=== PATIENT | male | born 1945 | race Caucasian/White ===

== ENCOUNTER 2025-03-25 16:32 | Inpatient (IN) | payer MEDICARE, SELFPAY ==
--- OUTSIDE RECORDS SUMMARY | 2024-02-21 04:30 | XMS_ITS ---
Author Organization [facility] Address [address] [address] Care Team Providers Care Can Marker Name Role Phone JANNA LAWLER Unavailable [phone] Elvin LUZ, Tristen Unavailable Unavailable MANUELA MEZA Unavailable [phone] REASON FOR VISIT Medicare Wellness Exam and lab review Encounters Encounter Location Date Provider Diagnosis [facility] [address] [address] 02/21/2024 MANUELA MEZA Plan Of Treatment No Information Progress Notes * ZIYAD SHAHDOB:[birth year] (79 yo M)Acc No.[id number]:02/21/2024 Progress Note Patient: ZIYAD HDEZ Cecelia Provider: Eliz MEZA PA-C :1945 A ge:78 Y S ex:Male Date:02/21/2024 Address:[address] [place], [id number] Subjective: * Chief Complaints: * 1 . Medicare Wellness Exam and lab review. * Medical History: Objective: * Vitals: Assessment: Plan: * Treatment: * Billing Information: * Visit Code: * Procedure Codes: * Electronic signature of JOSE ANTONIO HERMAN PA-C on 03/25/2025 at 06:49 PM EST Sign off status: Pending * Provider: Eliz MEZA PA-C Date: 1 Generated for Sonam be/Mundo/Franchescaitting on: 05/25/2024 06:49 PM EST
--- OUTSIDE RECORDS SUMMARY | 2024-09-02 03:11 | XMS_ITS | Continuity of Care Document ---
Author Organization [facility] Address [address] [facility] [place] [address] Phone Care Team Providers Care Dot Etcher Name Role Phone Mati Hood III, MD Unavailable Unavailable Advance Directives Directive Yes / No Effective Date File Name No Information Encounters Encounter Description Practice Location Reason(s) For Visit Diagnoses Date Provider Providers Copied on Encounter [facility], [address] [facility], [place], [place], [id number] , [place] tel: [phone] [place] [address] No Information Apr-2 - 5 Erwin Thorne. [address], [place], [address], [place]. tel:[phone] [facility], [address] [facility], [place], [place], [id number] , [place] tel: [phone] [place] [phone] Varner NEFL Cataract extraction status, right eye Mar-2 0- 5 Conversion Integration . This Is For Integration s, To Convert Old Doctors, Without Adding More Bad Data. [facility], [address] [facility], [place], [place], [id number] , [place] tel: [phone] [place] [address] Cataract extraction status, right eye Mar-1 2- 5 Rolando Garcia. [address] [place], [address], [place]. tel:[phone] [facility], [address] [facility], [place], [place], [id number] , [place] tel: [phone] [place] [phone] [facility] NEFL Dry eye syndrome of bilateral lacrimal glandsKeratocon junctivitis sicca, not specified as Sjogren's, bilateralAge-re lated nuclear cataract, right eyeHypermetropi a, right eyeMyopia, left eyeEssential (primary) hypertensionRos acea, unspecifiedPres ence of intraocular lens 5 Washington III Mati. [address], [place], [address], [place]. tel: [phone] [facility], [address] [place] [address], [id number] , [place] tel: [phone] [place] [address] [address] Cataract extraction status, left eye 5 Rolando Garcia. [address] [place], [address], [place]. tel: [phone] [facility], [address] [place] [address], [id number] , [place] tel: [phone] [place] [address] [address] SOSA Cataract extraction status, left eye 5 Erwin III Mati. [address], [place], [address], [place]. tel: [phone] [facility], [address] [place] [address], [id number] , [place] tel: [phone] [place] [address] [facility] Dry eye syndrome of bilateral lacrimal glandsKeratocon junctivitis sicca, not specified as Sjogren's, bilateralAge-re lated nuclear cataract, bilateralRosace a, unspecifiedMeib omian gland dysfunction right eye, upper and lower eyelidsMeibomia n gland dysfunction left eye, upper and lower eyelids 5 Washington III Mati. [address], [place], [address], [place]. tel: [phone] [facility], [address] [place] [address], [id number] , [place] tel: [phone] [place] [address] [address] SOSA Age-related nuclear cataract, left eye 5 Washington III Mati. [address], [place], [address], [place]. tel:[phone] [facility], [place], [place], [id number] , [place] tel: [phone] [place] Kieran Varner NEFL Infestation, unspecifiedDry eye syndrome of bilateral lacrimal glandsKeratocon junctivitis sicca, not specified as Sjogren's, bilateralFloppy iris syndromeAge-rel ated nuclear cataract, bilateralHyperm etropia, bilateralRosace a, unspecifiedHerp esviral infection, unspecified Erwin Thorne. [address], [place], [address], [place]. tel:[phone] Family History Family Member Type Diagnosis Age At Onset Problem (finding) - No Relevant Family Hi story Payers Payer name Insurance type Covered green party ID Authoriza tion(s) No Information Social History Type Description Quantity Date Captured Comments Sex Male Smoking Status No Information Chief Complaint And Reason For Visit No Information Reason For Referral Reason For Referral No Information History Of Present Illness Encounter Date Complaint History Of Prese nt Illness No Information Functional Status Date Functional Assessmen t No Information Instructions Date Instruction Additional Infor mariya Impression Related to Eye: OD. Impression: s/p 2 week postop. Plan Plan Plan Plan Plan Plan Plan Impression Related to Impre ssion: + Lisinopril. Plan Assessments Type Assessment Date No Information Patient Care Teams Name Effective Dates (start - stop) Status Members No Information
--- NOTE | ~2025-03-25 | CT_ITS ---
CLINICAL HISTORY: RUQ pain, tenderness CT abdomen and pelvis with contrast Comparison: CT - CT ABDOMEN PELVIS W IV CON - 03/25/25 18:52 EST Findings: The lung bases are clear. The liver, spleen, pancreas, bilateral adrenal glands and bilateral kidneys without acute abnormality or abnormal enhancement. Small right-sided renal cysts are noted. The gallbladder is slightly distended. There is pericholecystic fat stranding and minimal gallbladder wall thickening. No significant biliary dilatation or radiopaque gallstones. the stomach and bowel loops are not dilated. There is sigmoid colon diverticulosis. Otherwise no focal colonic lesions or pneumatosis. Appendix is normal. No free fluid, collections or free air. There is nonspecific thickening of the wall of the cecum medially. There is no aortic dissection or aneurysm. No abdominopelvic lymphadenopathy. The bladder is normal. No acute soft tissue or skeletal abnormality in the abdomen or pelvis. Small fat containing umbilical hernia. Well-seated bilateral hip joint arthroplasties resulting in significant metallic artifact in the pelvic cavity. IMPRESSION: Findings most compatible with acute cholecystitis. Recommend confirmation with right upper quadrant ultrasound as well as surgical consultation. There is thickening of the wall of the cecum medially, incidental nonspecific finding. No priors for comparison. Recommend nonemergent GI consultation for direct visualization. This document has been electronically signed by: Rob Lewis MD on 03/25/2025 20:24:11
--- NOTE | ~2025-03-25 | XR_ITS ---
CLINICAL HISTORY: Pleuritic chest pain 2 view chest x-ray Comparison: None provided Findings: The lungs are clear. No pneumothorax or effusions Normal size heart. No acute fracture. Partially seen well-seated right shoulder joint arthroplasty. IMPRESSION: 1. No acute findings. This document has been electronically signed by: Rob Lweis MD on 03/25/2025 18:43:07
--- NOTE | ~2025-03-25 | US_ITS ---
CLINICAL HISTORY: ? CHOLECYSTITIS US abdomen limited Comparison: CT/SR - CT ABDOMEN PELVIS W IV CON - 03/25/25 19:04 EST Findings: The gallbladder is distended. Borderline gallbladder wall thickening. Sonographic king's sign is positive. Few tiny gallstones are noted in the region of the gallbladder neck. Common bile duct nondilated at 4 mm. Partially seen liver unremarkable. IMPRESSION: Distended gallbladder with positive sonographic King's sign. Gallstones. Borderline gallbladder wall thickening. The sonographic findings are concerning for early acute cholecystitis. Recommend surgical consultation. This document has been electronically signed by: Rob Lewis MD on 03/25/2025 21:39:36
[2025-03-25 16:32] VITALS: BP 121/79; PULSE 79; RESP 20; TEMP 36.6; O2SAT 92; BMI 32.3
--- NOTE | 2025-03-25 16:33 | ED_ITS ---
HPI - General Adult General Chief complaint: Abdominal Pain Stated complaint: Difficulty breathing Time Seen by Provider: 03/25/25 17:52 History of Present Illness ED Provider: Prakash RAMÍREZ narrative: The patient is a 79-year-old male who comes to the emergency room after having previously been evaluated at the emergency room at [facility]. He went to the emergency room at [facility] yesterday evening around 19:30 complaining of abdominal pain that had started a few hours before. He had presented complaining of abdominal pain, nausea, and vomiting. As part of his workup at [facility] he had a CAT scan of the abdomen and pelvis and also a CT angiogram of the chest abdomen and pelvis. Apparently these tests were unremarkable. However he continued to have pain in his right upper abdomen and ultimately had an ultrasound of his gallbladder that showed no definite gallstones but it did show a distended gallbladder and a positive ultrasonographic King's sign, potentially consistent with acute cholecystitis. While in the emergency room there he received ceftriaxone and metronidazole and pain medications for his symptoms. There was a plan to obtain a HIDA scan. Apparently however before the HIDA scan could be done the patient received notification from his insurance company that his stay at [facility] would have a very significant copayment. The patient made the decision that he did not wish to stay at [facility] but to come to [facility] instead because [place] is part of the network coverage for his health insurance. The patient is normally on apixaban because of paroxysmal atrial fibrillation (he does not think he has had any atrial fibrillation in a long time). His last dose was yesterday morning. No reported fever. The patient has no history of intra-abdominal surgery. Related Data Allergies Allergy/AdvReac Type Severity Reaction Status Date / Time acetaminophen (From Percocet) Allergy Hallucinati Verified 03/25/25 16:37 ons bee pollen (bee stings) Allergy Anaphylaxis Verified 03/25/25 16:37 codeine Allergy Rash Verified 03/25/25 16:37 diclofenac Allergy Hypertensio Verified 03/25/25 16:37 n oxycodone (From Percocet) Allergy Hallucinati Verified 03/25/25 16:37 ons Review of Systems 2 Review of Systems: Yes all other systems are reviewed and are negative [facility] Past Medical History Medical History (Updated 03/25/25 @ 22:05 by Elaine Meade PA-C) BPH (benign prostatic hyperplasia) Class 1 obesity Nocturnal hypoxemia HTN (hypertension) Paroxysmal A-fib Social History Social History Smoked in Last 30 Days: No Use of substances other than those prescribed or required for medical reasons: No Advance Directives: No Advance Directives Information Provided: Yes Do you have a plan to hurt others: No Plan Physical Exam ED Vital Signs: Vital Signs - 24 hr 03/25/25 16:32 03/25/25 18:31 03/25/25 20:02 Temperature 97.9 F 97.8 F Pulse Rate 79 71 73 Respiratory Rate 20 16 16 Blood Pressure 121/79 115/57 L 125/61 Pulse Oximetry 92 89 L 93 Oxygen Delivery Method Room Air Room Air Room Air BMI result Body Mass Index 32.3 Const Other: The patient is awake, alert, pleasant, cooperative. He does not appear overtly ill. Orientation/consciousness: patient oriented x3 HENMT Other: The face is symmetrical. ?Mucous membranes moist. Eyes Other: Pupils are round equal, conjunctivae are clear, extraocular movements intact Neck Neck: Yes normal visual inspection, Yes full ROM and Yes no JVD Resp Effort & Inspection: normal respiratory effort Auscultation: clear to auscultation bilaterally Cardio Rate: regular rate Rhythm: regular rhythm Heart sounds: S1 normal heart sound present and S2 normal heart sound present GI Other: The patient is tender in his right upper quadrant Skin General skin exam: no rashes or lesions noted Neuro General: patient oriented x3, tone normal, moves all extremities, no focal motor deficits and CN's II-XI intact bilaterally Extrem Other: There is no calf swelling or tenderness. No asymmetry. No peripheral edema. Course Course Course Narrative: This is a rapid medical exam performed by Carolynn Brito NP: Additional HPI, ROS, PE not included below will be deferred to primary provider. Patient is a 79y/o M with pmhx afib on Eliquis (held for past 2 days), HTN, GERD, BPH presenting after admission at [facility] for abd pain, nausea, vomiting. Had CT and CTA A/P there as well as ultrasound which showed distended GB, + sonographic King's sign without stones. Surgery recommended HIDA scan, however, patient's insurance was going to leave him with a significant co-pay. Attempt at transfer was made unsuccessfully, so patient left AMA to present here where insurance would cover a greater portion. Has discs of imaging with him. Did receive IV abx while at [facility]. Plan: labs Medications Administered Generic Name Dose Route Start Last Admin Trade Name Freq PRN Reason Stop Dose Admin Dextrose/Lactated Ringer's 1,000 mls @ 125 mls/hr 03/25/25 21:15 03/25/25 21:28 D5lr IVCONT 125 mls/hr .Q8H BRENDA Administration Ondansetron HCl 4 mg 03/25/25 21:01 03/25/25 21:27 Ondansetron Hcl 4 Mg/2 Ml Vial IVPUSH 4 mg QID PRN Administration Nausea Discontinued Medications Generic Name Dose Route Start Last Admin Trade Name Freq PRN Reason Stop Dose Admin Ceftriaxone Sodium 2 gm/ 50 mls @ 100 mls/hr 03/25/25 19:21 03/25/25 20:00 Sodium Chloride IV 03/25/25 19:50 Infused ONCE ONE Infusion Metronidazole 500 mg in 100 mls @ 100 mls/hr 03/25/25 19:21 03/25/25 21:09 Flagyl IV 03/25/25 20:20 Infused ONCE ONE Infusion Iohexol 100 ml 03/25/25 19:07 03/25/25 19:08 Iohexol 350 Mg/Ml 100 Ml Infus..Btl IV 03/25/25 19:08 85 ml ONCE ONE Administration Medical Decision Making Medical Decision Making [facility] Narrative: The patient is a 79-year-old male who comes to the emergency room after having been previously evaluated at the emergency room at [facility]. He presents with symptoms that began yesterday afternoon, approximately 24 hours before presenting here. Apparently he was thought to possibly have acute cholecystitis although CAT scans and an ultrasound were somewhat equivocal and there was a plan to get a HIDA scan to help confirm the diagnosis. The patient had to leave [facility] because apparently his insurance company told him that the copays would be very high if he stayed at a [facility] because the patient's insurance does not have any kind of contract with that hospital. The patient therefore ended up leaving the emergency department after he had, I think, been admitted to the hospitalist service. Here the patient is tender in his right upper [place] [id number] although he does not have a fever. His lactate is normal. He does not seem septic. His vital signs are stable. He was given IV ceftriaxone and metronidazole. Because the imaging modalities at [facility] were all very equivocal I obtained a CT scan of the abdomen and pelvis possibility of acute cholecystitis. An ultrasound was recommended by the radiologist for confirmation. An ultrasound is also suggesting cholecystitis. The case was reviewed with the on-call general surgeon, Dr. Marquez and the patient will be admitted to his service for further care. Lab Data 03/25/25 16:47 03/25/25 16:47 Labs: Lab Results 03/25/25 03/25/25 03/25/25 Range/Units 16:47 18:53 21:03 WBC 21.1 H (4.8-10.8) X10*3/uL RBC 4.98 (4.60-5.80) X10*6/uL Hgb 15.5 (14.0-18.0) g/dl Hct 44.8 (42.0-52.0) % MCV 90.0 (80.0-98.0) fL MCH 31.1 (27.0-33.0) pg MCHC 34.6 (31.0-36.0) g/dl RDW 13.8 (11.0-16.0) % Plt Count 198 (160-400) X10*3/uL MPV 10.6 (9.4-12.4) fL Immature Gran % (Auto) 0.7 H (0.0-0.4) % Neut % (Auto) 90.9 H (45-73) % Lymph % (Auto) 3.2 L (20-40) % [place] % (Auto) 4.9 (2-11) % Eos % (Auto) 0.1 (0-4) % Baso % (Auto) 0.2 (0-2) % Lymph # (Auto) 0.7 L (1.2-4.9) X10*3/uL [place] # (Auto) 1.0 (0.1-1.2) X10*3/uL Eos # (Auto) 0.0 (0.0-0.4) X10*3/uL Baso # (Auto) 0.1 (0.0-0.2) X10*3/uL Abs Immat Gran (auto) 0.14 H (0.00-0.03) X10*3/uL Absolute Neuts (auto) 19.1 H (2.0-8.3) x10*3/uL Absolute Nucleated RBC 0.000 (0.0-0.012) X10*3/uL Nucleated RBC % (auto) 0.0 (0.0-0.2) /100WBC Smear Tech's Comments VERIFIED Sodium 139 (135-145) mmol/L Potassium 3.3 (3.3-5.1) mmol/L Chloride 105 (96-108) mmol/L Carbon Dioxide 24 (22-29) mmol/L Anion Gap 13 (12-20) BUN 14 (9-16) mg/dL Creatinine 0.98 (0.5-1.4) mg/dL Estim Creat Clear Calc 74.3 Estimated GFR > 60 Random Glucose 138 H (60-115) mg/dL Lactic Acid 1.8 (0.5-2.0) mmol/L Calcium 9.0 (8.4-10.2) mg/dL Total Bilirubin 1.0 (0.0-1.0) mg/dL Direct Bilirubin 0.4 (0.0-0.5) mg/dL AST 32 (5-37) U/L ALT 22 (0-40) U/L Alkaline Phosphatase 60 (39-117) U/L C-Reactive Protein 14.41 H (< or = 0.50) mg/dL Total Protein 6.9 (6.5-8.0) g/dL Albumin 4.1 (3.5-5.0) g/dL Lipase 49 (8-78) U/L Urine Color Dark Yellow Urine Appearance Clear Urine pH 5.5 (5.0-9.0) Ur Specific [place] >= 1.030 H (1.005-1.025) Urine Protein 30 (1+) H (Neg-Trace) mg/dL Urine Glucose (UA) Negative (Negative) mg/dL Urine Ketones Negative (Negative) mg/dL Urine Blood Trace H (Negative) Urine Nitrite Negative (Negative) Ur Leukocyte Esterase Negative (Negative) Urine RBC 6-10 H (0-2) /HPF Urine WBC 0-5 (0-5) /HPF Ur Squamous Epith Cells 0-2 (0-2) /HPF Urine Bacteria None Seen (None Seen) Hyaline Casts 0-2 (0-2) /LPF Independent Interpretation I performed an independent interpretation of an: EKG Interpretation: EKG at 18:40 shows normal sinus rhythm at 71 beats per minute. No acute ischemic changes. That is a fairly unremarkable EKG. No old EKGs available for comparison. Discharge Plan Discharge Clinical Impression: Abdominal pain, acute, right upper quadrant Patient Disposition: Admitted As Inpatient
[2025-03-25 16:53] LABS: Hematocrit 44.8 % (42.0-52.0); Hemoglobin 15.5 g/dl (14.0-18.0); Imm Gran Abs Auto 0.14 X10*3/uL (0.00-0.03); Imm Gran Pct Auto 0.7 % (0.0-0.4); Lymphocytes Absolute Auto 0.7 X10*3/uL (1.2-4.9); MANUAL DIFF FLAG SCAN; Mean Corpuscular HGB Conc 34.6 g/dl (31.0-36.0); Mean Corpuscular Hemoglobin 31.1 pg (27.0-33.0); Mean Corpuscular Volume 90.0 fL (80.0-98.0); NRBC Abs Auto 0.000 X10*3/uL (0.0-0.012); NRBC Pct Auto 0.0 /100WBC (0.0-0.2); Platelet Count 198 X10*3/uL (160-400); Red Blood Count 4.98 X10*6/uL (4.60-5.80); SCAN SMEAR FLAG 1; White Blood Count 21.1 X10*3/uL (4.8-10.8)
[2025-03-25 17:07] LABS: Alanine Aminotransferase 22 U/L (0-40); Albumin Level 4.1 g/dL (3.5-5.0); Alkaline Phosphatase 60 U/L (39-117); Anion Gap 13 (12-20); Aspartate Amino Transferase 32 U/L (5-37); Blood Urea Nitrogen 14 mg/dL (9-16); Calcium 9.0 mg/dL (8.4-10.2); Carbon Dioxide 24 mmol/L (22-29); Chloride 105 mmol/L (96-108); Creatinine Clr Calc Pharmacy 74.3; Estimated Glomerular Filt Rate > 60; Lipase 49 U/L (8-78); Potassium 3.3 mmol/L (3.3-5.1); Sodium 139 mmol/L (135-145); Total Protein 6.9 g/dL (6.5-8.0)
--- NOTE | 2025-03-25 18:05 | ECG_ITS ---
Test Reason : afib Blood Pressure : */* mmHG Vent. Rate : 71 BPM Atrial Rate : 71 BPM P-R Int : 176 ms QRS Dur : 100 ms QT Int : 392 ms P-R-T Axes : 24 -12 8 degrees QTcB Int : 425 ms Normal sinus rhythm Inferior infarct , age undetermined Abnormal ECG No previous ECGs available Referred By: Haile Randall Electronically Signed By: CRYSTAL ROTH MD
[2025-03-25 18:31] VITALS: BP 115/57; PULSE 71; RESP 16; O2SAT 89
--- OUTSIDE RECORDS SUMMARY | 2025-03-25 18:49 | XMS_ITS | Clinical Summary ---
Author Organization [facility] it Address [address] [place] [address] Care Team Providers Care Attorney Name Role Phone Yassine Schultz MD Primary Care Provider [phone] Surgical History Surgery Date Site/Laterality Comments SHOULDER SURGERY 2003 Left PROCEDURE: HISTORICAL SHOULDER SURGERY; COMMENT: Dr. Corea - rotator cuff repair SHOULDER ARTHROSCOPY 2010 Right PROCEDURE: RI SURGICAL ARTHROSCOPY SHOULDER W/LSS&RESCJ ADS; COMMENT: Dr. Corea OTHER SURGICAL HISTORY 2016 Left PROCEDURE: RI ARTHRP ACETBLR/PROX FEM PROSTC AGRFT/ALGRFT; COMMENT: Dr. Osei Medical History Medical History Date Comments HTN (hypertension) DX:HTN (hyper tension) Hyperlipidemia DX:Hyperlipidemi a GERD (gastroesophageal reflux disease) DX:GERD (gastroesophageal reflux disease) BPH (benign prostatic hyperplasia) DX:BPH (benign prostatic hyperplasia) Allergy to bee sting DX:Allergy to bee sting Social History Tobacco Use Types Packs/Day Years Used Date Smoking Tobacco: Former Cigarettes 0.5 17 0 11/22/1960 - 11/22/1977 Smokeless Tobacco: Never Sex and Gender Information Value Date Recorded Sex Assigned at Not on file Legal Sex Male 6:31 PM EST Gender Identity Not on file Sexual Orientation Not on file Obstetrics History Plan of Treatment Health Maintenance Due Date Last Done Comments DTaP,Tdap,and Td Vaccines (1 - Tdap) 1965 Pneumococcal Vaccine: 50+ Ye ars (1 of 1 - PCV) 1996 Zoster Vaccines (1 of 2) 1996 RSV Immunization Adult Patie nts (1 - 1-dose 75+ series) 2021 Cholesterol Screening (Lipid Panel) 04/16/2022 Falls Risk Assessment 04/16/2022 Hepatitis C Screening 04/16/2022 Social Influencers of Health Screening 04/16/2022 Hypertension/CHF/CAD Annual BMP Blood Test 04/30/2022 Depression Screening 05/15/2024 COVID-19 Vaccine (2024-2 6 season) 2025 Influenza Vaccine (#1) 2025 HIB Vaccines Aged Out No longer eligi ble based on patient's age to complete this topic HPV Vaccines Aged Out No longer eligi ble based on patient's age to complete this topic Hepatitis A Vaccines Aged Out No long er eligible based on patient's age to complete this topic Hepatitis B Vaccines Aged Out No long er eligible based on patient's age to complete this topic IPV Vaccines Aged Out No longer eligi ble based on patient's age to complete this topic MMR Vaccines Aged Out No longer eligi ble based on patient's age to complete this topic Meningococcal ACWY Vaccine Aged Out N o longer eligible based on patient's age to complete this topic Meningococcal B Vaccine Aged Out No l onger eligible based on patient's age to complete this topic RSV Immunization Patients Un louann 20 months Aged Out No longer eligible b ased on patient's age to complete this topic Varicella Vaccines Aged Out No longer eligible based on patient's age to complete this topic Advance Directives Documents on File Type Date Recorded Patient Income Tax Expert Expl anation Health Care Decision (hx) 07/19/2016 AD ASH DIRECTIVE Health Care Decision (hx) 07/19/2016 AD ASH DIRECTIVE Health Care Decision (hx) 07/19/2016 AD ASH DIRECTIVE Care Teams Attorney Relationship Specialty Start Date End Date Yassine Schultz MD PCP - General Internal Medicine 10/19/18
--- OUTSIDE RECORDS SUMMARY | 2025-03-25 18:49 | XMS_ITS | Clinical Summary ---
Author Organization [facility] Address [address] [place] [address] Care Team Providers Care Snap Attacher Name Role Phone Unavailable Primary Care Provider Unavailabl e Allergies Active Allergy Reactions Criticality Noted Date Comments Bee Venom Anaphylaxis High 05/24/2024 Codeine Rash/Dermatitis Low 05/24/2024 Diclofenac Unknown/Patient and Family Unable to Define Medium 05/24/2024 Oxycodone-Acetaminophen Delirium/Confusion/Psychosis Mediu 05/24/2024 Medications apixaban (ELIQUIS) 2.5 MG tablet Take 2.5 mg by mouth 2 (two) times a day. Active atenolol (TENORMIN) 25 MG tablet Take 25 mg by mouth daily. Active clorazepate (TRANXENE) 3.75 MG tablet Take 25 mg by mouth 2 (two) times a day. Active lisinopril (PRINIVIL,ZeSTR IL) 40 MG tablet Take 40 mg by mouth daily. Active OMEprazole (PriLOSEC OTC) 20 MG tablet Take 20 mg by mouth every morning before breakfast. Active atorvastatin (LIPITOR) 40 MG tablet Take 40 mg by mouth daily. Active tamsulosin (FLOMAX) 0.4 MG capsule Take 0.4 mg by mouth daily. Active apixaban (ELIQUIS) 5 MG tablet Take 5 mg by mouth 2 (two) times a day. Active gabapentin (NEURONTIN) 300 MG capsule Take 300 mg by mouth 3 (three) times a day. Active cyanocobalamin (VITAMIN B-12) 500 MCG tablet Take 500 mcg by mouth daily. Active zinc gluconate 50 MG tablet Take 50 mg by mouth daily. Active Multiple Vitamin (multivitamin) capsule Take 1 capsule by mouth daily. Active cholecalciferol (CHOLECALCIFERO L) 10 MCG (400 UNIT) tablet Take 400 Units by mouth daily. Active fluticasone (FloNASE) 50 mcg/spray nasal sprayIndication s:Viral illness 1 spray into each nostril 2 times a day. 1 each 05/24/2024 Active proMETHAZINE-de xtromethorphan (proMETHAZINE-D M) 6.25-15 MG/5ML syrupIndication s:Viral illness Take 5 mL by mouth every 4 (four) hours as needed for cough. 120 mL 05/24/2024 Active benzonatate (TESSALON) 100 MG capsuleIndicati ons:Viral illness Take 1 capsule (100 mg total) by mouth 3 (three) times a day as needed for cough. 20 capsule 05/24/2024 Active Social History Tobacco Use Types Packs/Day Years Used Date Smoking Tobacco: Never Assessed Sex and Gender Information Value Date Recorded Sex Assigned at Not on file Legal Sex Male 9:41 AM EST Gender Identity Not on file Sexual Orientation Not on file Last Filed Vital Signs Vital Sign Reading Time Taken Comments Blood Pressure 148/89 05/24/2024 10:14 AM EST Pulse 75 05/24/2024 10:14 AM EST Temperature 36.8 C (98.3 F) 05/24/2024 10:14 AM EST Respiratory Rate 18 05/24/2024 10:14 AM EST Oxygen Saturation 97% 05/24/2024 10:14 AM EST Inhaled Oxygen Concentration - - Weight 98 kg (216 lb) 05/24/2024 10:14 AM EST Height 177.8 cm (5' 10 ) 05/24/2024 10:14 AM EST Body Mass Index 30.99 05/24/2024 10:14 AM EST Plan of Treatment Health Maintenance Due Date Last Done Comments Advance Care Planning 1945 Hepatitis C Virus Screening 1945 DTaP/Tdap/Td Vaccines (1 - Tdap) 1965 Pneumococcal Vaccines 50+ (1 of 1 - PCV) 1996 Zoster (Shingles) Vaccine (1 of 2) 1996 RSV Vaccine 50 years and older and Patients (1 - 1-dose 75+ series) 2021 Influenza Vaccine 12/13/2024 02/12/2023, , 02/02/2021, Additional history exists COVID-19 Vaccine ( - season) 2025 03/16/2021, 08/10/2020, 07/13/2020 Hepatitis B Vaccines Aged Out No long er eligible based on patient's age to complete this topic Insurance [facility]
--- OUTSIDE RECORDS SUMMARY | 2025-03-25 18:49 | XMS_ITS | Patient Health Record ---
Author Organization [facility] Address [address] [place] [address] Care Team Providers Care Marketing Professional Name Role Phone Tristen Oconnor MD Primary Care Provider Duran Rivers Unavailable [phone] Tristen Oconnor Unavailable Unavailable Reason For Referral No Information Plan Of Treatment No Information Insurance Providers Payer Name Payer Address Payer Phone Subscriber Number Group Number Insured Name Patient Relationship to Insured Coverage Start Date Coverage End Date Medicare Part B [address] [place] [phone] [id number] Balta Rodríguez Self - patient is the insured [facility] [address] [address] [place] [address] [phone] [id number] Balta Rodríguez Self - patient is the insured
--- OUTSIDE RECORDS SUMMARY | 2025-03-25 18:49 | XMS_ITS | Patient Health Record ---
Author Organization [facility] Address [address] [address] Care Team Providers Care Sales Trader Name Role Phone JANNA LAWLER Unavailable [phone] Tristen Wesley MD Unavailable Unavailable DR TRISTEN WESLEY Unavailable [phone] MANUELA MEZA Unavailable [phone] Allergies Allergen (clinical drug ingredient) Drug/Non Drug Allergy documented on EMR Reaction Allergy Type Onset Date Status bee sting (uncoded) anaphylaxis Allergy Active codeine Codeine Sulfate rash Drug Allergy A ctive Diclofenac anaphylaxis Drug Allergy Acti ve Reason For Referral No Information Medications Medication SIG (Take, Route, Frequency, Duration) Notes Start Date End Date Status Omeprazole 20 MG 1 capsule 30 minutes before morning meal Orally Once a day Active hydroCHLOROthiazide 25 MG 1 tablet in th e morning Orally Once a day Active Lisinopril 40 MG 1 tablet Orally Once a day Active Atenolol 25 MG 1 tablet Orally Once a day Active Tamsulosin HCl 0.4 MG 2 capsules Orally Once a day; Duration: 30 days Active EPINEPHrine 0.1 MG/0.1ML as directed Inj ection prn; Duration: 30 days Active Rosuvastatin Calcium 40 MG 1 tablet Oral ly Once a day Active Eliquis 5 MG as directed Orally t wice a day; Duration: 15 days Active Social History Tobacco Use: Social History Observation Description Date Details (start date - stop date) Never Smoker NA - NA Tobacco Use/Smoking Question Answer Notes Are you a nonsmoker Alcohol Screen (Audit-C) Question Answer Notes Did you have a drink contain ing alcohol in the past year? Yes How often did you have a dri nk containing alcohol in the past year? Monthly or less (1 point) Points 1 Interpretation Negative Problems Problem Type SNOMED Code ICD Code Onset Dates Problem Status W/U Status Risk Notes Problem Hypothyroidism (84134980) Hypothyroidism, unspecified (E03.9) Active confirmed Problem Mixed hyperlipidemia (082820768) Mixed hyperlipidemia (E78.2) Active confirmed Problem Chronic atrial fibrillation (501353271) Chronic atrial fibrillation (I48.2) Active confirmed Problem Polyarthritis (324782865) Polyarthritis, unspecified (M13.0) Active confirmed Problem Benign prostatic hypertrophy without outflow obstruction (616867175) Benign prostatic hyperplasia without lower urinary tract symptoms (N40.0) Active confirmed Problem Chronic fatigue syndrome (76200978) Chronic fatigue (R53.82) Active confirmed Problem Essential hypertension (88305252) Essential hypertension (I10) Active confirmed Problem Disorder of lumbar disc (843603063) Lumbar disc disorder (M51.9) Active confirmed Problem Hypothyroidism (81644828) Hypothyroidism, unspecified type (E03.9) Active confirmed Problem Displacement of lumbar intervertebral disc without myelopathy (80431913) 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) Active confirmed Problem Gastroesophageal reflux disease (202357118) Gastroesophageal reflux disease, esophagitis presence not specified (K21.9) Active confirmed Problem Gout (28446795) Acute gout involving toe of left foot, unspecified cause (M10.9) Active confirmed Problem Vitamin D deficiency (74926111) Vitamin D deficiency (E55.9) Active confirmed Problem Benign prostatic hyperplasia (329533745) Prostate hypertrophy (N40.0) Active confirmed Problem Localized, primary osteoarthritis of the pelvic region and thigh (766743910) 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) Active confirmed Problem Atrial fibrillation (24681286) Paroxysmal A-fib (I48.0) Active confirmed Problem Cataract (459473935) Cataract of both eyes, unspecified cataract type (H26.9) Active confirmed Problem Degenerative disc disease (75104117) DDD (degenerative disc disease), lumbar (M51.36) Active confirmed Problem Body mass index 30.00 to 34.99 (792997123075248) BMI 31.0-31.9,adult (Z68.31) Active confirmed Problem Obese class II (932290141248568) BMI 35.0-35.9,adult (Z68.35) Active confirmed Problem Plain X-ray result abnormal (873020763) Abnormal x-ray (R93.89) Active confirmed Problem Age-related cataract (18998395) Senile cataract of right eye, unspecified age-related cataract type (H25.9) Active confirmed Vital Signs Heart Rate 84 /min 07/11/2024 Temperature 98.3 degrees Fahrenheit 07/11/2024 Oximetry 98 % 07/11/2024 Blood pressure diastolic 82 mm Hg 07/11/2024 Height 70 in 07/11/2024 Blood pressure systolic 134 mm Hg 07/11/2024 Weight 221 lbs 07/11/2024 BMI 31.71 kg/m2 07/11/2024 Procedures Procedure Date Ordered Date Performed Result Body Sit e EKG 06/11/2024 06/11/2024 N/A Encounters Encounter Location Date Provider Diagnosis [facility] [address] [place] [address] 06/11/2024 TRISTEN WESLEY Preoperative clearan ce Z01.818 ; Essential hypertension I10 ; Paroxysmal A-fib I48.0 ; Mixed hyperlipidemia E78.2 ; Cataract of both eyes, unspecified cataract type H26.9 and Benign prostatic hyperplasia without lower urinary tract symptoms N40.0 [facility] [address] [place] [address] 06/11/2024 TRISTEN WESLEY [facility] [address] [place] [id number] 07/11/2024 MANUELA MEZA Preop examination Z01.818 ; Senile cataract of right eye, unspecified age-related cataract type H25.9 ; Essential hypertension I10 and Paroxysmal A-fib I48.0 Assessments Encounter Date Diagnosis (ICD Code) Assessment Notes Treatment Notes Treatment Clinical Notes Section Notes 06/11/2024 Essential hypertension (ICD-10 - I10) Stable on current med regimen 06/11/2024 Preoperative clearance (ICD-10 - Z01.818) 07/11/2024 Preop examination (ICD-10 - Z01.818) Case discussed with Dr. Wesley who agrees that he is low risk (cleared) for OD cataract surgery. Stop Eliquis only if advised by Ophthamology 07/11/2024 Senile cataract of right eye, unspecified age-related cataract type (ICD-10 - H25.9) Proceed with OD Caract surgery 07/11/2024 Essential hypertension (ICD-10 - I10) Cont med regimen 06/11/2024 Paroxysmal A-fib (ICD-10 - I48.0) Cont Eliquis but will need to stop 2 days prior to procedure and may restart 24-48 hrs after 06/11/2024 Mixed hyperlipidemia (ICD-10 - E78.2) Cont statin treatment 07/11/2024 Paroxysmal A-fib (ICD-10 - I48.0) Pt has not had any Afib burden per cardiology, but they still want him anticoagulated 06/11/2024 Cataract of both eyes, unspecified cataract type (ICD-10 - H26.9) Patient is medical stable to first proceed with cataract of left eye then proceed with cataract of right eye 06/11/2024 Benign prostatic hyperplasia without lower urinary tract symptoms (ICD-10 - N40.0) Cont Flomax 06/11/2024 Other PATIENT IS MEDICALLY STABLE TO PROCEED WITH CATARACT REPAIR Plan Of Treatment Pending Test Test Name Order Date CBC With Differential/Platelet Prostate-Specific Ag, Serum 08/25/2023 Insurance Providers Payer Name Payer Address Payer Phone Subscriber Number Group Number Insured Name Patient Relationship to Insured Coverage Start Date Coverage End Date [employer] [address] [address] [place] [address] [phone] [id number] ZIYAD SHAH Self - patient is the insured Medical (General) History Medical History History ICD Code high blood pressure heart disease Surgical History Surgery Date(Month/Year) (R) rotator cuff repair 2003 (L) rotator cuff repair 2010 (L) hip replacement 2016 (R) wrist injection 2018 shoulder surgery 2021 Hospitalization History Reason Date(Month/Year) see above hip replacement 2016
[2025-03-25] MEDS: iohexoL 350 MG/ML 100 ML INFUS..BTL IV (19:08)
[2025-03-25 20:02] VITALS: BP 125/61; PULSE 73; RESP 16; TEMP 36.6; O2SAT 93
[2025-03-25] MEDS: metroNIDAZOLE/NS 500 MG/100 ML PIGGYBACK 100 MG IV (20:09)
[2025-03-25 21:12] LABS: Appearance Urine Clear; Glucose Urine UA Negative (Negative); PH 5.5 (5.0-9.0); Specific Gravity - Urine >= 1.030 (1.005-1.025); UMIC TRIGGER UACC YES
--- NOTE | 2025-03-25 21:25 | P.CONHOSP_ITS ---
History of Present Illness Data of Consult Service Date: 03/25/25 Requesting physician: Tim Marquez Primary Care Provider: Unknown Physician HPI Reason for consult: medical management/pre-op clearance Patient is a 79-year-old male with a past medical history significant for paroxysmal AFib on Eliquis (last dose taken yesterday morning), hypertension, GERD, BPH and class 1 obesity, admitted general surgery for acute cholecystitis. Patient was started on ceftriaxone and Flagyl at consult placed for preop clearance. Patient's medical history and medications reviewed. He was seen at [facility] ED yesterday for RUQ pain and vomiting (14+ times) but wanted to be transferred here for insurance reasons. Due to transfer issues, pt left AMA and came here. He reports his nausea is controlled right now with medication and he is having RUQ pain with palpation and deep inspriation. No history of MS or coronary artery disease. No issues with anesthesia in the past. has paroxysmal a fib and is no longer on antiarrhythmic but takes atenolol and eliquis. he also reports nocturnal hypoxia, not SEGUNDO, does not use oxygen at home. Review of Systems 2 Constitutional: Constitutional: Denies body ache(s), Denies chills, Denies fatigue, Denies fever(s) and Denies headache(s) Eyes: Eyes: Denies change in vision ENT: Denies headache(s), Denies nasal discharge and Denies sore throat Cardiovascular: Cardiovascular: Denies chest pain, Denies rapid heart rate, Denies leg edema, Denies lightheadedness and Denies dyspnea Respiratory: Respiratory: Denies chest congestion, Denies cough, Denies dyspnea and Denies wheezing Gastrointestinal: Gastrointestinal: Reports as per HPI Genitourinary: Genitourinary: Denies dysuria, Denies urinary frequency and Denies urinary urgency Musculoskeletal: Musculoskeletal: Denies back pain Integumentary/Breasts: Skin/Breast: Denies rash Neurologic: Denies confusion and Denies headache(s) Psychiatric: Psychiatric: Denies confusion Endocrine: Endocrine: Denies fatigue Hematologic/Lymphatic: Hematologic/Lymphatic: Denies easy bleeding Allergic/Immunologic: Allergic/Immunologic: Denies wheezing [facility] Medical History (Updated 03/25/25 @ 22:05 by Elaine Meade PA-C) BPH (benign prostatic hyperplasia) Class 1 obesity Nocturnal hypoxemia HTN (hypertension) Paroxysmal A-fib Functional capacity: independent ambulation Social History Smoked in Last 30 Days: No Use of substances other than those prescribed or required for medical reasons: No Advance Directives: No Advance Directives Information Provided: Yes Do you have a plan to hurt others: No Plan Narrative: no smoking, social occasional etoh, no drug use Meds Allergies Allergy/AdvReac Type Severity Reaction Status Date / Time acetaminophen (From Percocet) Allergy Hallucinati Verified 03/25/25 16:37 ons bee pollen (bee stings) Allergy Anaphylaxis Verified 03/25/25 16:37 codeine Allergy Rash Verified 03/25/25 16:37 diclofenac Allergy Hypertensio Verified 03/25/25 16:37 n oxycodone (From Percocet) Allergy Hallucinati Verified 03/25/25 16:37 ons Active Medications: Current Medications Calcium Carbonate (Calcium Carbonate 750 Mg Tab.Chew) 750 mg PO Q4H PRN PRN Reason: Heartburn Dextrose/Lactated Ringer's (D5lr) 1,000 mls @ 125 mls/hr IVCONT .Q8H BRENDA Metronidazole (Flagyl) 500 mg in 100 mls @ 100 mls/hr IV Q8H BRENDA Ceftriaxone Sodium 1 gm/ (Sodium Chloride) 50 mls @ 100 mls/hr IV Q12H BRENDA Magnesium Hydroxide (Milk Of Magnesia 30 Ml Oral.Susp) 30 ml PO DAILY PRN PRN Reason: Constipation Melatonin (Melatonin 3 Mg Tablet) 6 mg PO BEDTIME PRN PRN Reason: Insomnia Ondansetron HCl (Ondansetron Hcl 4 Mg/2 Ml Vial) 4 mg IVPUSH QID PRN PRN Reason: Nausea Sodium Chloride (0.9 % Sodium Chloride Flush 3 Ml Syringe) 3 ml IVFLUSH QSHIFT BRENDA Physical Exam 2 Vital Signs and Narrative: Vital Signs: Last Vital Signs Temp 97.8 F 03/25/25 20:02 Pulse 73 03/25/25 20:02 Resp 16 03/25/25 20:02 BP 125/61 03/25/25 20:02 Pulse Ox 93 03/25/25 20:02 O2 Del Method Room Air 03/25/25 20:02 BMI result Body Mass Index 32.3 General: AOx3, no acute distress Resp: CTA bilaterally CVS: S1, S2, RRR GI: +BS, tender RUQ +King's sign, no distention Skin: Warm, dry Neuro: Cranial nerves II-XII grossly intact bilaterally. Motor grossly intact bilaterally Extremities: No pittig edema Psych: Appropriate affect Const: General: No confusion Orientation/consciousness: No confusion Neuro: General: No confusion Results Labs 03/25/25 16:47 03/25/25 16:47 Labs: Laboratory Results - last 24 hr 03/25/25 03/25/25 03/25/25 16:47 18:53 21:03 MCV 90.0 MCH 31.1 MCHC 34.6 RDW 13.8 Plt Count 198 MPV 10.6 Immature Gran % (Auto) 0.7 H Neut % (Auto) 90.9 H Lymph % (Auto) 3.2 L [place] % (Auto) 4.9 Eos % (Auto) 0.1 Baso % (Auto) 0.2 Lymph # (Auto) 0.7 L [place] # (Auto) 1.0 Eos # (Auto) 0.0 Baso # (Auto) 0.1 Abs Immat Gran (auto) 0.14 H Absolute Neuts (auto) 19.1 H Absolute Nucleated RBC 0.000 Nucleated RBC % (auto) 0.0 Smear Tech's Comments VERIFIED Anion Gap 13 Estim Creat Clear Calc 74.3 Estimated GFR > 60 Random Glucose 138 H Lactic Acid 1.8 Calcium 9.0 Total Bilirubin 1.0 Direct Bilirubin 0.4 AST 32 ALT 22 Alkaline Phosphatase 60 C-Reactive Protein 14.41 H Total Protein 6.9 Albumin 4.1 Lipase 49 Urine Color Dark Yellow Urine Appearance Clear Urine pH 5.5 Ur Specific [place] >= 1.030 H Urine Protein 30 (1+) H Urine Glucose (UA) Negative Urine Ketones Negative Urine Blood Trace H Urine Nitrite Negative Ur Leukocyte Esterase Negative Urine RBC 6-10 H Urine WBC 0-5 Ur Squamous Epith Cells 0-2 Urine Bacteria None Seen Hyaline Casts 0-2 Assessment and Plan (1) Preprocedural examination: Status: Acute (2) Acute cholecystitis: Status: Acute Plan Patient is a 79-year-old male with a past medical history significant for paroxysmal AFib on Eliquis (last dose taken yesterday morning), hypertension, GERD, BPH and class 1 obesity, admitted general surgery for acute cholecystitis. acute cholecystitis - plan per surgery - ceftriaxone and flagyl - intermediate risk for planned procedure, NSQIP score attached below - RCRI score 1, EKG non ischemic - NPO - no further workup indicated at this time for pre-op clearance paroxysmal a fib - atenolol - hold eliquis HTN - atenolol BPH - continue home meds nocturnal hypoxia - O2 PRN via NC class 1 obesity - weight loss encouraged med rec pending, pt did not know medications and states he brought med list but RN is not aware and not in pt's chart full code VTE prophy: SCDs Thank you for allowing me to participate in the pt's care. Signing off. Please contact the medical team if any questions or concerns.
[2025-03-25] MEDS: Dextrose 5 % and Lactated Ring 1,000 ML 125 ML IVCONT (21:28)
--- NOTE | 2025-03-25 21:51 | PC.NURSE ---
Pt's sister Yeni requesting to be contacted w/any updates/changes in plan.
[2025-03-25 22:09] VITALS: BP 114/55; PULSE 73; RESP 16; TEMP 36.6; O2SAT 93
[2025-03-26] MEDS: metroNIDAZOLE/NS 500 MG/100 ML PIGGYBACK 100 MG IV ×3 (04:06→19:35)
[2025-03-26 04:38] LABS: Hematocrit 42.2 % (42.0-52.0); Hemoglobin 14.2 g/dl (14.0-18.0); Imm Gran Abs Auto 0.12 X10*3/uL (0.00-0.03); Imm Gran Pct Auto 0.6 % (0.0-0.4); Lymphocytes Absolute Auto 0.7 X10*3/uL (1.2-4.9); MANUAL DIFF FLAG SCAN; Mean Corpuscular HGB Conc 33.6 g/dl (31.0-36.0); Mean Corpuscular Hemoglobin 30.7 pg (27.0-33.0); Mean Corpuscular Volume 91.1 fL (80.0-98.0); NRBC Abs Auto 0.000 X10*3/uL (0.0-0.012); NRBC Pct Auto 0.0 /100WBC (0.0-0.2); Platelet Count 174 X10*3/uL (160-400); Red Blood Count 4.63 X10*6/uL (4.60-5.80); SCAN SMEAR FLAG 1; White Blood Count 18.8 X10*3/uL (4.8-10.8)
[2025-03-26 04:53] LABS: Anion Gap 14 (12-20); Blood Urea Nitrogen 14 mg/dL (9-16); Calcium 9.2 mg/dL (8.4-10.2); Carbon Dioxide 25 mmol/L (22-29); Chloride 106 mmol/L (96-108); Creatinine Clr Calc Pharmacy 65.6; Estimated Glomerular Filt Rate > 60; Potassium 3.9 mmol/L (3.3-5.1); Sodium 141 mmol/L (135-145)
[2025-03-26 06:06] VITALS: BP 121/62; PULSE 78; RESP 20; TEMP 36.9; O2SAT 94
[2025-03-26 06:46] VITALS: BMI 34.6
--- NOTE | 2025-03-26 06:47 | MHC.EDTECH ---
Sister Yeni looking for update at this time. [phone]
[2025-03-26 07:31] VITALS: BP 121/58; PULSE 71; RESP 16; TEMP 37.1; O2SAT 91
--- NOTE | 2025-03-26 09:17 | HO.ANESPROP2 ---
Documented by User: Karen Smart NP 03/26/25 10:14 HPI - Anesthesia Eval Consult details Narrative: 79 yr old male for cholecystectomy, laparoscopic, possible open Saw pt on floor 03/26/25, denies CP or SOB with raking and 16 bags of leaves within past week. Afib: Saw Dr. Dia at [facility] cardiology in 2021, was on eliquis & flecainide then but antiarrhythmic dc'd after that visit; had echo in 2021 (*see below); since then following cardiology in [place] - denies any further cardiac testing in [place] Noctural hypoxemia: not on O2 or using CPAP PMF Active Problems Active Problems: All Active Problems Preprocedural examination (Acute) Acute cholecystitis (Acute) BPH (benign prostatic hyperplasia) (Acute) Class 1 obesity (Acute) Nocturnal hypoxemia (Acute) HTN (hypertension) (Acute) Paroxysmal A-fib (Acute) Abdominal pain, acute, right upper quadrant (Acute) Past Medical History Medical History (Updated 03/26/25 @ 05:54 by Farhana Ledesma RN) BPH (benign prostatic hyperplasia) Class 1 obesity Nocturnal hypoxemia HTN (hypertension) Paroxysmal A-fib Functional capacity: independent ambulation Family History Family history of problems with anesthesia: No Surgical History Surgical History (Updated 03/27/25 @ 06:45 by Trina Fox RN) Hx of rotator cuff surgery Hx of bilateral hip replacements S/P excision of lipoma History of total replacement of right shoulder joint History of Problems with Anesthesia: No Social History Social History Household Members: Spouse Housing: House Do you presently have visiting nurse or other home services: No Patient Tobacco Use Status: Former Tobacco user service: No Meds Allergies Allergy/AdvReac Type Severity Reaction Status Date / Time bee pollen (bee stings) Allergy Anaphylaxis Verified 03/25/25 16:37 codeine Allergy Rash Verified 03/25/25 16:37 diclofenac Allergy Hypertensio Verified 03/25/25 16:37 n oxycodone (From Percocet) Allergy Hallucinati Verified 03/25/25 16:37 ons Active Medications: Current Medications Calcium Carbonate (Calcium Carbonate 750 Mg Tab.Chew) 750 mg PO Q4H PRN PRN Reason: Heartburn Dextrose/Lactated Ringer's (D5lr) 1,000 mls @ 125 mls/hr IVCONT .Q8H [facility] Last Infusion: 03/26/25 07:07 Dose: Infused Metronidazole (Flagyl) 500 mg in 100 mls @ 100 mls/hr IV Q8H [facility] Last Infusion: 03/26/25 05:35 Dose: Infused Ceftriaxone Sodium 1 gm/ (Sodium Chloride) 50 mls @ 100 mls/hr IV Q12H [facility] Last Infusion: 03/26/25 07:22 Dose: Infused Magnesium Hydroxide (Milk Of Magnesia 30 Ml Oral.Susp) 30 ml PO DAILY PRN PRN Reason: Constipation Melatonin (Melatonin 3 Mg Tablet) 6 mg PO BEDTIME PRN PRN Reason: Insomnia Ondansetron HCl (Ondansetron Hcl 4 Mg/2 Ml Vial) 4 mg IVPUSH QID PRN PRN Reason: Nausea Last Admin: 03/25/25 21:27 Dose: 4 mg Sodium Chloride (0.9 % Sodium Chloride Flush 3 Ml Syringe) 3 ml IVFLUSH QSHIFT [facility] Last Admin: 03/26/25 08:01 Dose: Not Given Home Medications ?Medication ?Instructions ?Recorded ?Confirmed ?Last Taken ?Type apixaban 5 mg tablet (Eliquis) 5 mg PO BID 03/26/25 03/26/25 03/24/25 History ascorbic acid (vitamin C) 500 mg 1,000 mg PO DAILY 03/26/25 03/26/25 03/24/25 History tablet (Vitamin C) atenolol 25 mg tablet 25 mg PO DAILY 03/26/25 03/26/25 03/24/25 History atorvastatin 80 mg tablet 40 mg PO DAILY 03/26/25 03/26/25 03/24/25 History cholecalciferol (vitamin D3) 50 50 mcg PO DAILY 03/26/25 03/26/25 03/24/25 History mcg (2,000 unit) tablet (Vitamin D3) gabapentin 300 mg capsule 300 mg PO BID 03/26/25 03/26/25 03/24/25 History hydrochlorothiazide 25 mg tablet 25 mg PO DAILY 03/26/25 03/26/25 03/24/25 History lisinopril 40 mg tablet 40 mg PO DAILY 03/26/25 03/26/25 03/24/25 History multivitamin 1 tab PO DAILY 03/26/25 03/26/25 03/24/25 History omeprazole 20 mg capsule,delayed 20 mg PO DAILY@0630 03/26/25 03/26/25 03/24/25 History release tamsulosin 0.4 mg capsule 0.8 mg PO DAILY 03/26/25 03/26/25 03/24/25 History zinc acetate 50 mg (zinc) capsule 50 mg PO DAILY 03/26/25 03/26/25 03/24/25 History Exam Height,Weight and Vital Signs: Height 5 ft 10 in Weight 109.5 kg Last Vital Signs Temp 98.8 F 03/26/25 07:31 Pulse 71 03/26/25 07:31 Resp 16 03/26/25 07:31 BP 121/58 L 03/26/25 07:31 Pulse Ox 91 L 03/26/25 07:31 O2 Del Method Room Air 03/26/25 07:31 O2 Flow Rate 2 03/26/25 06:06 Pertinent Lab Results Pertinent Lab Results: Laboratory Tests 03/25/25 03/25/25 03/25/25 16:47 18:53 21:03 WBC 21.1 H RBC 4.98 Hgb 15.5 Hct 44.8 MCV 90.0 MCH 31.1 MCHC 34.6 RDW 13.8 Plt Count 198 MPV 10.6 Immature Gran % (Auto) 0.7 H Neut % (Auto) 90.9 H Lymph % (Auto) 3.2 L [place] % (Auto) 4.9 Eos % (Auto) 0.1 Baso % (Auto) 0.2 Lymph # (Auto) 0.7 L [place] # (Auto) 1.0 Eos # (Auto) 0.0 Baso # (Auto) 0.1 Abs Immat Gran (auto) 0.14 H Absolute Neuts (auto) 19.1 H Absolute Nucleated RBC 0.000 Nucleated RBC % (auto) 0.0 Smear Tech's Comments VERIFIED Sodium 139 Potassium 3.3 Chloride 105 Carbon Dioxide 24 Anion Gap 13 BUN 14 Creatinine 0.98 Estim Creat Clear Calc 74.3 Estimated GFR > 60 Random Glucose 138 H Lactic Acid 1.8 Calcium 9.0 Total Bilirubin 1.0 Direct Bilirubin 0.4 AST 32 ALT 22 Alkaline Phosphatase 60 C-Reactive Protein 14.41 H Total Protein 6.9 Albumin 4.1 Lipase 49 Urine Color Dark Yellow Urine Appearance Clear Urine pH 5.5 Ur Specific [place] >= 1.030 H Urine Protein 30 (1+) H Urine Glucose (UA) Negative Urine Ketones Negative Urine Blood Trace H Urine Nitrite Negative Ur Leukocyte Esterase Negative Urine RBC 6-10 H Urine WBC 0-5 Ur Squamous Epith Cells 0-2 Urine Bacteria None Seen Hyaline Casts 0-2 03/26/25 04:12 WBC 18.8 H RBC 4.63 Hgb 14.2 Hct 42.2 MCV 91.1 MCH 30.7 MCHC 33.6 RDW 14.0 Plt Count 174 MPV 10.9 Immature Gran % (Auto) 0.6 H Neut % (Auto) 91.5 H Lymph % (Auto) 3.7 L [place] % (Auto) 3.9 Eos % (Auto) 0.0 Baso % (Auto) 0.3 Lymph # (Auto) 0.7 L [place] # (Auto) 0.7 Eos # (Auto) 0.0 Baso # (Auto) 0.1 Abs Immat Gran (auto) 0.12 H Absolute Neuts (auto) 17.2 H Absolute Nucleated RBC 0.000 Nucleated RBC % (auto) 0.0 Smear Tech's Comments VERIFIED Sodium 141 Potassium 3.9 Chloride 106 Carbon Dioxide 25 Anion Gap 14 BUN 14 Creatinine 1.11 Estim Creat Clear Calc 65.6 Estimated GFR > 60 Random Glucose 113 Lactic Acid Calcium 9.2 Total Bilirubin Direct Bilirubin AST ALT Alkaline Phosphatase C-Reactive Protein Total Protein Albumin Lipase Urine Color Urine Appearance Urine pH Ur Specific [place] Urine Protein Urine Glucose (UA) Urine Ketones Urine Blood Urine Nitrite Ur Leukocyte Esterase Urine RBC Urine WBC Ur Squamous Epith Cells Urine Bacteria Hyaline Casts Narrative Narrative: EKG 03/25/25 Vent. Rate : 71 BPM Atrial Rate : 71 BPM P-R Int : 176 ms QRS Dur : 100 ms QT Int : 392 ms P-R-T Axes : 24 -12 8 degrees QTcB Int : 425 ms Normal sinus rhythm Inferior infarct , age undetermined Abnormal ECG No previous ECGs available EKG 03/24/25 at [facility] Normal sinus rhythm, rate 63 Airway Mallampati Class: II TM Dist: >3cm Neck ROM: Full Partial: Upper Heart: RRR Lungs: CTAB Assessment and Plan Final Anesthetic Review Family History of Problems with Anesthesia: No History of Problems with Anesthesia: No Documented by User: Danna Johnson MD 03/27/25 07:09 [facility] Past Medical History Medical History (Updated 03/26/25 @ 05:54 by Farhana Ledesma RN) BPH (benign prostatic hyperplasia) Class 1 obesity Nocturnal hypoxemia HTN (hypertension) Paroxysmal A-fib Surgical History Surgical History (Updated 03/27/25 @ 06:45 by Trina Fox RN) Hx of rotator cuff surgery Hx of bilateral hip replacements S/P excision of lipoma History of total replacement of right shoulder joint Social History Social History Household Members: Spouse Housing: House Do you presently have visiting nurse or other home services: No Patient Tobacco Use Status: Former Tobacco user service: No Meds Allergies Allergy/AdvReac Type Severity Reaction Status Date / Time bee pollen (bee stings) Allergy Anaphylaxis Verified 03/25/25 16:37 codeine Allergy Rash Verified 03/25/25 16:37 diclofenac Allergy Hypertensio Verified 03/25/25 16:37 n oxycodone (From Percocet) Allergy Hallucinati Verified 03/25/25 16:37 ons Home Medications ?Medication ?Instructions ?Recorded ?Confirmed ?Last Taken ?Type apixaban 5 mg tablet (Eliquis) 5 mg PO BID 03/26/25 03/26/25 03/24/25 History ascorbic acid (vitamin C) 500 mg 1,000 mg PO DAILY 03/26/25 03/26/25 03/24/25 History tablet (Vitamin C) atenolol 25 mg tablet 25 mg PO DAILY 03/26/25 03/26/25 03/24/25 History atorvastatin 80 mg tablet 40 mg PO DAILY 03/26/25 03/26/25 03/24/25 History cholecalciferol (vitamin D3) 50 50 mcg PO DAILY 03/26/25 03/26/25 03/24/25 History mcg (2,000 unit) tablet (Vitamin D3) gabapentin 300 mg capsule 300 mg PO BID 03/26/25 03/26/25 03/24/25 History hydrochlorothiazide 25 mg tablet 25 mg PO DAILY 03/26/25 03/26/25 03/24/25 History lisinopril 40 mg tablet 40 mg PO DAILY 03/26/25 03/26/25 03/24/25 History multivitamin 1 tab PO DAILY 03/26/25 03/26/25 03/24/25 History omeprazole 20 mg capsule,delayed 20 mg PO DAILY@0630 03/26/25 03/26/25 03/24/25 History release tamsulosin 0.4 mg capsule 0.8 mg PO DAILY 03/26/25 03/26/25 03/24/25 History zinc acetate 50 mg (zinc) capsule 50 mg PO DAILY 03/26/25 03/26/25 03/24/25 History Exam Pertinent Lab Results Pertinent Lab Results: kLaboratory Tests 03/25/25 03/25/25 03/25/25 16:47 18:53 21:03 WBC 21.1 H RBC 4.98 Hgb 15.5 Hct 44.8 MCV 90.0 MCH 31.1 MCHC 34.6 RDW 13.8 Plt Count 198 MPV 10.6 Immature Gran % (Auto) 0.7 H Neut % (Auto) 90.9 H Lymph % (Auto) 3.2 L [place] % (Auto) 4.9 Eos % (Auto) 0.1 Baso % (Auto) 0.2 Lymph # (Auto) 0.7 L [place] # (Auto) 1.0 Eos # (Auto) 0.0 Baso # (Auto) 0.1 Abs Immat Gran (auto) 0.14 H Absolute Neuts (auto) 19.1 H Absolute Nucleated RBC 0.000 Nucleated RBC % (auto) 0.0 Smear Tech's Comments VERIFIED Sodium 139 Potassium 3.3 Chloride 105 Carbon Dioxide 24 Anion Gap 13 BUN 14 Creatinine 0.98 Estim Creat Clear Calc 74.3 Estimated GFR > 60 Random Glucose 138 H Lactic Acid 1.8 Calcium 9.0 Total Bilirubin 1.0 Direct Bilirubin 0.4 AST 32 ALT 22 Alkaline Phosphatase 60 C-Reactive Protein 14.41 H Total Protein 6.9 Albumin 4.1 Lipase 49 Urine Color Dark Yellow Urine Appearance Clear Urine pH 5.5 Ur Specific [place] >= 1.030 H Urine Protein 30 (1+) H Urine Glucose (UA) Negative Urine Ketones Negative Urine Blood Trace H Urine Nitrite Negative Ur Leukocyte Esterase Negative Urine RBC 6-10 H Urine WBC 0-5 Ur Squamous Epith Cells 0-2 Urine Bacteria None Seen Hyaline Casts 0-2 03/26/25 04:12 WBC 18.8 H RBC 4.63 Hgb 14.2 Hct 42.2 MCV 91.1 MCH 30.7 MCHC 33.6 RDW 14.0 Plt Count 174 MPV 10.9 Immature Gran % (Auto) 0.6 H Neut % (Auto) 91.5 H Lymph % (Auto) 3.7 L [place] % (Auto) 3.9 Eos % (Auto) 0.0 Baso % (Auto) 0.3 Lymph # (Auto) 0.7 L [place] # (Auto) 0.7 Eos # (Auto) 0.0 Baso # (Auto) 0.1 Abs Immat Gran (auto) 0.12 H Absolute Neuts (auto) 17.2 H Absolute Nucleated RBC 0.000 Nucleated RBC % (auto) 0.0 Smear Tech's Comments VERIFIED Sodium 141 Potassium 3.9 Chloride 106 Carbon Dioxide 25 Anion Gap 14 BUN 14 Creatinine 1.11 Estim Creat Clear Calc 65.6 Estimated GFR > 60 Random Glucose 113 Lactic Acid Calcium 9.2 Total Bilirubin Direct Bilirubin AST ALT Alkaline Phosphatase C-Reactive Protein Total Protein Albumin Lipase Urine Color Urine Appearance Urine pH Ur Specific [place] Urine Protein Urine Glucose (UA) Urine Ketones Urine Blood Urine Nitrite Ur Leukocyte Esterase Urine RBC Urine WBC Ur Squamous Epith Cells Urine Bacteria Hyaline Casts Assessment and Plan Assessment Anesthesia Assessment: Anesthesia Plan Discussed and Chart Reviewed Final Anesthetic Review NPO: Yes ASA Class: III Final Preanesthetic Review: No Changes in Pt Med Stat, Meds/Allgs Chart Reviewed and Consent Obtained/Reviewed Patient Risk: Intermediate Procedure Risk: Intermediate Anesthetic Plan Anesthetic Plan: GA Disposition: Standard PACU
--- NOTE | 2025-03-26 09:50 | PM.HPGS ---
History of Present Illness History of Present Illness Date of Service: 03/26/25 <Britt Owens PA-C - Last Filed: 03/26/25 10:03> 03/26/25 <Tim Marquez MD - Last Filed: 03/26/25 14:18> Chief complaint: Acute Cholecystitis <Britt Owens PA-C - Last Filed: 03/26/25 10:03> Narrative: Balta Mendoza is a 79 year old male with PMH of PAF on eliquis (last dose 03/24/25 morning), HTN, GERD who presented to the ED with complaints of right sided abdominal pain. He reports Monday he developed right sided abdominal pain around 5pm. The pain progressively worsened and became severe. It was associated with nausea and multiple episodes of vomiting. He therefore presented to the ED at [facility] due to the severity of pain. Work up there included CTA chest and abd/pelvis which were reported as unremarkable. ABD US was then performed which showed distended gallbladder without gallstones with positive ultrasonographic King's sign suggestive of acute cholecystitis. HIDA scan was ordered to further evaluate however before this could be done the patient received notification from his insurance company that his stay at [facility] would have a very significant copayment. He therefore left [place] and came to [place] where he is covered. Work up included CBC, BMP, LFTs significant for a leukocytosis of 21.1. CT scan abd/pelvis and ABD US showed gallstones, distended gallbladder with pericholecystic stranding and gallbladder wall thickening. He was therefore admitted to the surgical service for further treatment of the acute cholecystitis. He feels improved today with no pain at rest but some with deep breathing. He reports surgical history significant for right total shoulder and lipoma excision of abdominal wall. <Britt Owens PA-C - Last Filed: 03/26/25 10:03> Review of Systems Constitutional: Constitutional: Denies chills and Denies fever(s) <Britt Owens PA-C - Last Filed: 03/26/25 10:03> ENT: Denies dizziness <Britt Owens PA-C - Last Filed: 03/26/25 10:03> Cardiovascular: Cardiovascular: Denies chest pain and Denies dyspnea <Britt Owens PA-C - Last Filed: 03/26/25 10:03> Respiratory: Respiratory: Denies dyspnea <DARLINE Sheikh Last Filed: 03/26/25 10:03> Gastrointestinal: Gastrointestinal: Reports as per HPI <DARLINE Sheikh Last Filed: 03/26/25 10:03> Integumentary/Breasts: Skin/Breast: Denies rash and Denies jaundice <Britt Owens PA-C - Last Filed: 03/26/25 10:03> Neurologic: Denies dizziness <DARLINE Sheikh Last Filed: 03/26/25 10:03> PMF Past Medical History Medical History: Medical History (Updated 03/26/25 @ 05:54 by Farhana Ledesma RN) BPH (benign prostatic hyperplasia) Class 1 obesity Nocturnal hypoxemia HTN (hypertension) Paroxysmal A-fib <DARLINE Sheikh Last Filed: 03/26/25 10:03> Surgical History Surgical History: Surgical History (Updated 03/26/25 @ 09:58 by Britt Owens PA-C) S/P excision of lipoma History of total replacement of right shoulder joint <DARLINE Sheikh Last Filed: 03/26/25 10:03> Social History Social History: Social History Household Members: Spouse Housing: House Do you presently have visiting nurse or other home services: No Patient Tobacco Use Status: Never used Tobacco service: No <DARLINE Sheikh Last Filed: 03/26/25 10:03> Meds Allergies/Adverse reactions: Allergies Allergy/AdvReac Type Severity Reaction Status Date / Time acetaminophen (From Percocet) Allergy Hallucinati Verified 03/25/25 16:37 ons bee pollen (bee stings) Allergy Anaphylaxis Verified 03/25/25 16:37 codeine Allergy Rash Verified 03/25/25 16:37 diclofenac Allergy Hypertensio Verified 03/25/25 16:37 n oxycodone (From Percocet) Allergy Hallucinati Verified 03/25/25 16:37 ons <DARLINE Sheikh Last Filed: 03/26/25 10:03> Active Medications: Current Medications Calcium Carbonate (Calcium Carbonate 750 Mg Tab.Chew) 750 mg PO Q4H PRN PRN Reason: Heartburn Dextrose/Lactated Ringer's (D5lr) 1,000 mls @ 125 mls/hr IVCONT .Q8H [facility] Last Infusion: 03/26/25 07:07 Dose: Infused Metronidazole (Flagyl) 500 mg in 100 mls @ 100 mls/hr IV Q8H [facility] Last Infusion: 03/26/25 05:35 Dose: Infused Ceftriaxone Sodium 1 gm/ (Sodium Chloride) 50 mls @ 100 mls/hr IV Q12H [facility] Last Infusion: 03/26/25 07:22 Dose: Infused Magnesium Hydroxide (Milk Of Magnesia 30 Ml Oral.Susp) 30 ml PO DAILY PRN PRN Reason: Constipation Melatonin (Melatonin 3 Mg Tablet) 6 mg PO BEDTIME PRN PRN Reason: Insomnia Ondansetron HCl (Ondansetron Hcl 4 Mg/2 Ml Vial) 4 mg IVPUSH QID PRN PRN Reason: Nausea Last Admin: 03/25/25 21:27 Dose: 4 mg Sodium Chloride (0.9 % Sodium Chloride Flush 3 Ml Syringe) 3 ml IVFLUSH QSHIFT [facility] Last Admin: 03/26/25 08:01 Dose: Not Given <Britt Owens PA-C - Last Filed: 03/26/25 10:03> Home medications: Home Medications ?Medication ?Instructions ?Recorded ?Confirmed ?Last Taken ?Type apixaban 5 mg tablet (Eliquis) 5 mg PO BID 03/26/25 03/26/25 03/24/25 History ascorbic acid (vitamin C) 500 mg 1,000 mg PO DAILY 03/26/25 03/26/25 03/24/25 History tablet (Vitamin C) atenolol 25 mg tablet 25 mg PO DAILY 03/26/25 03/26/25 03/24/25 History atorvastatin 80 mg tablet 40 mg PO DAILY 03/26/25 03/26/25 03/24/25 History cholecalciferol (vitamin D3) 50 50 mcg PO DAILY 03/26/25 03/26/25 03/24/25 History mcg (2,000 unit) tablet (Vitamin D3) gabapentin 300 mg capsule 300 mg PO BID 03/26/25 03/26/2503/24/25 History hydrochlorothiazide 25 mg tablet 25 mg PO DAILY 03/26/25 03/26/25 03/24/25 History lisinopril 40 mg tablet 40 mg PO DAILY 03/26/25 03/26/25 03/24/25 History multivitamin 1 tab PO DAILY 03/26/25 03/26/25 03/24/25 History omeprazole 20 mg capsule,delayed 20 mg PO DAILY@0630 03/26/25 03/26/25 03/24/25 History release tamsulosin 0.4 mg capsule 0.8 mg PO DAILY 03/26/25 03/26/25 03/24/25 History zinc acetate 50 mg (zinc) capsule 50 mg PO DAILY 03/26/25 03/26/25 03/24/25 History <DARLINE Sheikh Last Filed: 03/26/25 10:03> Physical Exam Vital Signs: Vital Signs: Last Vital Signs Temp 98.8 F 03/26/25 07:31 Pulse 71 03/26/25 07:31 Resp 16 03/26/25 07:31 BP 121/58 L 03/26/25 07:31 Pulse Ox 91 L 03/26/25 07:31 O2 Del Method Room Air 03/26/25 07:31 O2 Flow Rate 2 03/26/25 06:06 BMI result Body Mass Index 34.6 <DARLINE Sheikh Last Filed: 03/26/25 10:03> Const: General: comfortable, no acute distress and alert <DARLINE Sheikh Last Filed: 03/26/25 10:03> Orientation/consciousness: patient oriented x3 <DARLINE Sheikh Last Filed: 03/26/25 10:03> Resp: Effort & Inspection: normal respiratory effort <DARLINE Sheikh Last Filed: 03/26/25 10:03> GI: Inspection: No distended and Yes scar (right upper abdomen, well healed ) <DARLINE Sheikh Last Filed: 03/26/25 10:03> Palpation (GI): Soft to palpation, Tenderness to palpation present (GI) in the RUQ; with no rebound tenderness and no guarding <DARLINE Sheikh Last Filed: 03/26/25 10:03> Percussion: Yes normal to percussion <DARLINE Sheikh Last Filed: 03/26/25 10:03> Skin: General skin exam: no rashes or lesions noted and no jaundice <DARLINE Sheikh Last Filed: 03/26/25 10:03> Neuro: General: patient oriented x3 and moves all extremities <DARLINE Sheikh Last Filed: 03/26/25 10:03> Results Results Labs: Short CBC 03/25/25 03/26/25 Range/Units 16:47 04:12 WBC 21.1 H 18.8 H (4.8-10.8) X10*3/uL Hgb 15.5 14.2 (14.0-18.0) g/dl Hct 44.8 42.2 (42.0-52.0) % Plt Count 198 174 (160-400) X10*3/uL BMP 03/25/25 03/26/25 16:47 04:12 Sodium 139 141 Potassium 3.3 3.9 Chloride 105 106 Carbon Dioxide 24 25 BUN 14 14 Creatinine 0.98 1.11 Calcium 9.0 9.2 Liver Function 03/25/25 Range/Units 16:47 Total Bilirubin 1.0 (0.0-1.0) mg/dL Direct Bilirubin 0.4 (0.0-0.5) mg/dL AST 32 (5-37) U/L ALT 22 (0-40) U/L Alkaline Phosphatase 60 (39-117) U/L Albumin 4.1 (3.5-5.0) g/dL Urine 03/25/25 Range/Units 21:03 Urine Color Dark Yellow Urine Appearance Clear Urine pH 5.5 (5.0-9.0) Ur Specific [place] >= 1.030 H (1.005-1.025) Urine Protein 30 (1+) H (Neg-Trace) mg/dL Urine Glucose (UA) Negative (Negative) mg/dL <DARLINE Sheikh Last Filed: 03/26/25 10:03> Abdomen CT scan report/results: report reviewed and image reviewed <Britt Owens PA-C - Last Filed: 03/26/25 10:03> Abdominal ultrasound report/results: report reviewed and image reviewed <Britt Owens PA-C - Last Filed: 03/26/25 10:03> Additional studies: labs reviewed <Britt Owens PA-C - Last Filed: 03/26/25 10:03> Assessment and Plan (1) Paroxysmal A-fib: Status: Acute <Britt Owens PA-C - Last Filed: 03/26/25 10:03> (2) Acute cholecystitis: Status: Acute <Britt Owens PA-C - Last Filed: 03/26/25 10:03> 79 year old male with PMH of PAF on eliquis (last dose 03/24/25 morning), HTN, GERD presenting with RUQ abdominal pain for 2 days with RUQ tenderness found to have gallstones, distended gallbladder, gallbladder wall thickening, pericholecystic fluid consistent with acute cholecystitis. He has been admitted to the surgical service. He has been started on IV rocephin and flagyl. His last dose of eliquis was Monday morning. Will therefore plan for laparoscopic cholecystectomy, possible open tomorrow. Hospitalist consult was obtained for perioperative risk assessment. Cont IV abx, IVF for now. Can have clear liquids but NPO after midnight. Patient comfortable with plan. <Britt Owens PA-C - Last Filed: 03/26/25 10:03> 79 year old male with PMH of PAF on eliquis (last dose 03/24/25 morning), HTN, GERD presenting with RUQ abdominal pain for 2 days with RUQ tenderness found to have gallstones, distended gallbladder, gallbladder wall thickening, pericholecystic fluid consistent with acute cholecystitis. He has been admitted to the surgical service. He has been started on IV rocephin and flagyl. His last dose of eliquis was Monday morning. Will therefore plan for laparoscopic cholecystectomy, possible open tomorrow. Hospitalist consult was obtained for perioperative risk assessment. Cont IV abx, IVF for now. Can have clear liquids but NPO after midnight. Patient comfortable with plan. 71-year-old male patient with complaints of abdominal pain in the epigastrium and right upper quadrant found to have tenderness in the right upper quadrant with pain with deep inspiration. Workup with a CT and ultrasound revealed a thickened gallbladder wall with dilated gallbladder suggestive of acute cholecystitis. Ultrasound does note some cholelithiasis as well. We discussed laparoscopic or possible open cholecystectomy and after discussion of the procedure, risks and alternatives, he consents to the surgery. He has been added onto the operative schedule for tomorrow morning. <Tim Marquez MD - Last Filed: 03/26/25 14:18> Quality Stroke Does the patient have a stroke diagnosis?: No <Britt Owens PA-C - Last Filed: 03/26/25 10:03> VTE Prior VTE?: No <Britt Owens PA-C - Last Filed: 03/26/25 10:03> VTE Risk Level:: Surgical - moderate <Britt Owens PA-C - Last Filed: 03/26/25 10:03> VTE Device Contraindication: N/A - Device Ordered <Britt Owens PA-C - Last Filed: 03/26/25 10:03> VTE Drug Contraindication: Treatment Not Indicated <Britt Owens PA-C - Last Filed: 03/26/25 10:03> Procedures Date of Service Date of Service: 03/26/25 <Britt Owens PA-C - Last Filed: 03/26/25 10:03> 03/26/25 <Tim Marquez MD - Last Filed: 03/26/25 14:18>
--- NOTE | 2025-03-26 11:33 | PHA.MEDREC ---
Addendum entered by Andrew Roberson RPh 03/26/25 12:28: MED REC REVIEWED BY [facility] Received pt's hand written home med list and med rec was updated accordingly. Original Note: Pharmacy Consult ? Medication Reconciliation Pharmacy has completed the medication reconciliation. Spoke to patient to confirm med list. Patient is waiting for his to come in with a list of his medications. Patient states she fill his medications fro the [facility] in [place]. Called [facility] and was able to get a verbal list. Received a list from [facility]. Utilized list from [facility] to confirm med list. Will update med rec if any changes when patient comes with a list.
[2025-03-26] MEDS: Dextrose 5 % and Lactated Ring 1,000 ML 125 ML IVCONT ×2 (11:49→21:34)
--- NOTE | 2025-03-26 13:13 | MHC.CM.PN ---
[facility] DELIVERED PT LIVES WITH SPOUSE AND IS FUNCTIONALLY INDEPENDENT. NO SERVICES OR DME. + DRIVES + HCP PCP DR. GUSTABO RODRIGUEZ DP: HOME, NO SERVICES IS ANTICIPATED. PT'S SPOUSE WILL TRANSPORT. CM WILL CONTINUE TO FOLLOW FOR ANY CHANGE TO DC PLAN/NEEDS.
[2025-03-26 15:36] VITALS: BP 139/64; PULSE 75; RESP 20; TEMP 37.4; O2SAT 92
[2025-03-26 19:54] VITALS: BP 137/63; PULSE 79; RESP 18; TEMP 37.2; O2SAT 94
[2025-03-27] VITALS (17 sets, daily range): BP systolic 119–155; BP diastolic 58–78; PULSE 55–78; RESP 12–25; TEMP 36.1–37.6; O2SAT 91–97
[2025-03-27] MEDS: metroNIDAZOLE/NS 500 MG/100 ML PIGGYBACK 100 MG IV ×3 (03:40→20:15)
[2025-03-27] MEDS: Lactated Ringers 1,000 ML 50 ML IVCONT (07:12)
--- NOTE | 2025-03-27 07:28 | MHC.SHP ---
Pre-Procedural Eval Section A - 24 Hr Update-Section A only Date of Service: 03/27/25 The patient is an INPATIENT: Yes Changes since office visit: Yes Patient answered all questions; No Cold of Flu in the past 2 weeks, No New Medical Problems and No Changes in Medication The patient has been examined within 24 hours of the surgical procedure. The History & Physical has been completed within 30 days and I have reviewed it.: Yes Section B - Complete if H&P > 30 days Chief Complaint: Acute Cholecystitis Allergies: Allergies Allergy/AdvReac Type Severity Reaction Status Date / Time bee pollen (bee stings) Allergy Anaphylaxis Verified 03/25/25 16:37 codeine Allergy Rash Verified 03/25/25 16:37 diclofenac Allergy Hypertensio Verified 03/25/25 16:37 n oxycodone (From Percocet) Allergy Hallucinati Verified 03/25/25 16:37 ons Plan Diagnosis/Plan: Unchanged I have reviewed the history and physical and performed a pertinent physical examination on my patient. No changes have occurred unless specified. Time Spent With Patient Time: Total time managing care of this patient today ____ minutes.
--- NOTE | 2025-03-27 09:39 | W.PM.OPN ---
Operative Note Operative Note Date of Service: 03/27/25 Narrative: Preoperative diagnosis: Acute cholecystitis, cholelithiasis Postoperative diagnosis: Same Procedure: Laparoscopic converted to open cholecystectomy Surgeon: Tim Marquez MD Sound Art Instructor: Britt Owens PA-C; Eloise Henriquez MS-3 Anesthesia: General endotracheal Indications for procedure: 79-year-old male patient presenting with complaints of epigastric and right upper quadrant abdominal pain found to be tender in the right upper quadrant. Workup with ultrasound and CT revealed a thickened gallbladder wall with gallstones suggestive of acute cholecystitis Operative findings: Markedly inflamed gallbladder with gangrenous changes. Dense adhesions with the transverse colon surrounding liver and gallbladder. Unable to visualize gallbladder laparoscopically therefore converted to open procedure. Specimen: Gallbladder Estimated blood loss: 20 mL Complications: None Drains: SHERI large Procedure details: Patient was brought to the OR placed in a supine position. After administering general anesthesia the patient's abdomen was prepped with ChloraPrep and draped in a sterile fashion. A surgical time-out was called the consent confirmed. Patient received preoperative antibiotics and Venodyne boots were in place. Local anesthesia was infiltrated in a periumbilical region. A 5 mm incision was then made with a scalpel and carried out through subcutaneous tissue. A Veress needle was then inserted while elevating the abdominal wall with towel clips. After positive drop test the abdomen was insufflated to a pressure 15 mmHg. A 12 mm trocar was then placed in the epigastric region and 2 5 mm trocar was placed in the right upper quadrant. The patient was placed in a reverse Trendelenburg position rotated to the left. The gallbladder was unable to be visualized due to dense adhesions. An attempt was made to dissect through the gallbladder from the surrounding adhesions however this was determined to be difficult and unsafe. The decision was made to convert to an open procedure. A subcostal incision was made in the right side and carried out through subcutaneous tissue through anterior rectus sheath. Rectus muscle was incised using electrocautery. Hemostasis was assured using electrocautery. Posterior sheath was then entered with the electrocautery and finally peritoneum entered. A bowel for retractor was then inserted. Dense adhesions were then carefully taken down using electrocautery and right angle dissection to reveal a portion of the gallbladder wall at the fundus. This was then drained using a laparoscopic needle. The gallbladder was then grasped with a Brielle clamp. Peritoneum was then divided using electrocautery at the fundus. A tonsil clamp and right inguinal clamp was then used to dissect the gallbladder in a retrograde fashion off the gallbladder fossa. The dissection was continued carefully down towards the cystic duct. Cystic artery was identified and doubly clipped. A 2nd branch of the cystic artery was also doubly clipped. Multiple areas of gangrenous change were noted throughout the gallbladder wall. The dissection was continued down to the infundibulum which was grasped with a right-angle clamp. The gallbladder was noted to be gangrenous right up to this point. A 2-0 silk tie was then placed on the cystic duct followed by hemoclips. The gallbladder was removed and sent to pathology for further examination. Wounds were then irrigated thoroughly with saline solution. No bile leak or bleeding could be identified. A large (10) Shilo-Sarmiento drain was then placed in the gallbladder fossa and brought out through the lateral trocar incision. This was secured using a 3-0 nylon suture. Wounds were then closed in layers using 0 Polysorb suture beginning with the peritoneum and posterior sheath, followed by oblique fascia and then anterior rectus sheath. Additional local was placed in the subcutaneous tissue. Nicolle's fascia and dermis were then reapproximated using interrupted 3-0 Polysorb sutures. Skin was closed using skin cecille. The patient tolerated the procedure well. Sponge, instrument, needle counts reported as correct. The patient was transferred to PACU in stable condition.
[2025-03-27 10:59] LABS: Glucose, Whole Blood 133 mg/dL (60-115)
[2025-03-27] MEDS: Dextrose 5 % and Lactated Ring 1,000 ML 125 ML IVCONT ×2 (11:39→20:10)
[2025-03-27] MEDS: 0.9 % Sodium Chloride Flush 3 ML SYRINGE IVFLUSH (20:10)
[2025-03-28 03:17] VITALS: BP 127/69; PULSE 61; RESP 18; TEMP 37.1; O2SAT 92
[2025-03-28] MEDS: Dextrose 5 % and Lactated Ring 1,000 ML 125 ML IVCONT ×2 (04:38→15:01)
[2025-03-28] MEDS: metroNIDAZOLE/NS 500 MG/100 ML PIGGYBACK 100 MG IV ×3 (04:44→20:23)
[2025-03-28 05:42] LABS: MANUAL DIFF FLAG NO
[2025-03-28 05:47] LABS: Hematocrit 37.7 % (42.0-52.0); Hemoglobin 12.7 g/dl (14.0-18.0); Imm Gran Abs Auto 0.10 X10*3/uL (0.00-0.03); Imm Gran Pct Auto 0.6 % (0.0-0.4); Lymphocytes Absolute Auto 0.9 X10*3/uL (1.2-4.9); Mean Corpuscular HGB Conc 33.7 g/dl (31.0-36.0); Mean Corpuscular Hemoglobin 30.6 pg (27.0-33.0); Mean Corpuscular Volume 90.8 fL (80.0-98.0); NRBC Abs Auto 0.000 X10*3/uL (0.0-0.012); NRBC Pct Auto 0.0 /100WBC (0.0-0.2); Platelet Count 176 X10*3/uL (160-400); Red Blood Count 4.15 X10*6/uL (4.60-5.80); White Blood Count 16.0 X10*3/uL (4.8-10.8)
[2025-03-28 05:59] LABS: Anion Gap 11 (12-20); Blood Urea Nitrogen 14 mg/dL (9-16); Calcium 8.7 mg/dL (8.4-10.2); Carbon Dioxide 28 mmol/L (22-29); Chloride 106 mmol/L (96-108); Creatinine Clr Calc Pharmacy 90.8; Estimated Glomerular Filt Rate > 60; Potassium 3.8 mmol/L (3.3-5.1); Sodium 141 mmol/L (135-145)
--- NOTE | 2025-03-28 06:29 | PM.PNGS ---
Subjective Subjective Date of Service: 03/28/25 <Eloise Henriquez - Last Filed: 03/28/25 08:50> 03/31/25 <Britt Owens PA-C - Last Filed: 03/31/25 09:43> Interval history: Balta Mendoza is a 79 year old male with PMH of PAF on eliquis (last dose 03/24/25 morning), HTN, GERD admitted with acute cholecystitis now POD#1 s/p planned laperoscopic that converted into open cholecystectomy. He was admitted to the ED with progressive worsening R sided abdominal pain associated with nausea and vomiting. Overnight patient's O2 sat dropped to 86% requiring nasal cannula. This was discontinued and he has been on room air with last pulse ox reading of 92. He has been using the incentive spirometry and has been reaching 1000mL. He was ambulating yesterday and reports 10/10 abdominal pain on deep inhalation, but minimal pain at rest. He is on a liquid diet and is voiding well. Reports GERD which improved with Pepcid 20mg. He also endorses flatus. Drainage port collected a total of 60ml of serosanguinous fluid. He denies nausea, vomitting, fever and chills. <Eloise Henriquez - Last Filed: 03/28/25 08:50> Physical Exam Vital Signs: Vital Signs: Last Vital Signs Temp 98.7 F 03/28/25 03:17 Pulse 61 03/28/25 03:17 Resp 18 03/28/25 03:17 BP 127/69 03/28/25 03:17 Pulse Ox 92 03/28/25 03:17 O2 Del Method Room Air 03/28/25 03:17 O2 Flow Rate 3 03/27/25 11:15 BMI result Body Mass Index 34.6 <Eloise Henriquez - Last Filed: 03/28/25 08:50> Const: General: healthy appearing, comfortable and no acute distress <Eloise Henriquez - Last Filed: 03/28/25 08:50> Nutritional Appearance: obese <Eloise Henriquez - Last Filed: 03/28/25 08:50> Orientation/consciousness: patient oriented x3 <Eloise Henriquez - Last Filed: 03/28/25 08:50> Limitations: no limitations <Eloise Henriquez - Last Filed: 03/28/25 08:50> Resp: Effort & Inspection: able to speak in complete sentences, decreased respiratory effort (likely due to pain on deep inhalation) and not labored <Eloise Henriquez - Last Filed: 03/28/25 08:50> GI: Inspection: Yes distended and Yes other <Eloise Henriquez - Last Filed: 03/28/25 08:50> Palpation (GI): Soft to palpation and No Rebound tenderness present <Eloise Henriquez - Last Filed: 03/28/25 08:50> Percussion: Yes tympanic to percussion <Eloise Henriquez - Last Filed: 03/28/25 08:50> : Other: Dressings dry and intact <Eloise Henriquez - Last Filed: 03/28/25 08:50> Neuro: General: patient oriented x3 <Eloise Henriquez Last Filed: 03/28/25 08:50> Objective Data Active Medications Apixaban (Apixaban 5 Mg Tablet) 5 mg PO BID [facility] [place] Atenolol (Atenolol 25 Mg Tablet) 25 mg PO DAILY [facility] [place]; Protocol Last Admin: 03/27/25 13:23 Dose: 25 mg Documented By: LUCILLE Atorvastatin Calcium (Atorvastatin Calcium 40 Mg Tablet) 40 mg PO DAILY [facility] [place] Last Admin: 03/27/25 13:23 Dose: 40 mg Documented By: LUCILLE Calcium Carbonate (Calcium Carbonate 750 Mg Tab.Chew) 750 mg PO Q4H PRN PRN Reason: Heartburn Last Admin: 03/26/25 17:35 Dose: 750 mg Documented By: LUCILLE Docusate Sodium (Docusate Sodium 100 Mg Capsule) 100 mg PO BID [facility] [place] Famotidine (Famotidine 20 Mg Tablet) 20 mg PO BID PRN PRN Reason: heartburn Last Admin: 03/26/25 21:35 Dose: 20 mg Documented By: SAÚL Gabapentin (Gabapentin 300 Mg Capsule) 300 mg PO BID [facility] [place] Last Admin: 03/27/25 20:11 Dose: Not Given Documented By: GERMAN Non-Admin Reason: Patient Refused Hydromorphone HCl (Hydromorphone Hcl 2 Mg Tablet) 2 mg PO Q3H PRN PRN Reason: Pain, Moderate(Pain Scale 4-6) Last Admin: 03/27/25 16:40 Dose: 2 mg Documented By: LUCILLE Dextrose/Lactated Ringer's (D5lr) 1,000 mls @ 125 mls/hr IVCONT .Q8H [facility] [place] Last Infusion: 03/28/25 04:40 Dose: 0 mls/hr Documented By: GERMAN Metronidazole (Flagyl) 500 mg in 100 mls @ 100 mls/hr IV Q8H [facility] [place] Last Infusion: 03/28/25 05:51 Dose: Infused Documented By: GERMAN Ceftriaxone Sodium 1 gm/ (Sodium Chloride) 50 mls @ 100 mls/hr IV Q12H [facility] [place] Last Admin: 03/28/25 05:45 Dose: 100 mls/hr Documented By: GERMAN Lisinopril (Lisinopril 40 Mg Tablet) 40 mg PO DAILY [facility] [place]; Protocol Last Admin: 03/27/25 13:23 Dose: 40 mg Documented By: LUCILLE Magnesium Hydroxide (Milk Of Magnesia 30 Ml Oral.Susp) 30 ml PO DAILY PRN PRN Reason: Constipation Melatonin (Melatonin 3 Mg Tablet) 6 mg PO BEDTIME PRN PRN Reason: Insomnia Omeprazole (Omeprazole 20 Mg Capsule.Dr) 20 mg PO DAILY@0630 [facility] [place] Last Admin: 03/28/25 04:44 Dose: 20 mg Documented By: EGRMAN Ondansetron HCl (Ondansetron Hcl 4 Mg/2 Ml Vial) 4 mg IVPUSH QID PRN PRN Reason: Nausea Last Admin: 03/27/25 12:33 Dose: 4 mg Documented By: LUCILLE Polyethylene Glycol (Polyethylene Glycol 3350 17 Gm Powd.Pack) 17 gm PO DAILY [facility] [place] Sodium Chloride (0.9 % Sodium Chloride Flush 3 Ml Syringe) 3 ml IVFLUSH QSHIFT [facility] [place] Last Admin: 03/27/25 20:10 Dose: 3 ml Documented By: GERMAN Tamsulosin HCl (Tamsulosin Hcl 0.4 Mg Capsule) 0.8 mg PO DAILY [facility] [place] Last Admin: 03/27/25 13:23 Dose: 0.8 mg Documented By: LUCILLE <Eloise Henriquez - Last Filed: 03/28/25 08:50> Labs CBC & Chem 7: 03/30/25 06:02 03/28/25 05:17 <Eloise Henriquez - Last Filed: 03/28/25 08:50> Labs: Laboratory Results - last 24 hr 03/27/25 03/28/25 10:55 05:17 MCV 90.8 MCH 30.6 MCHC 33.7 RDW 13.4 Plt Count 176 MPV 11.2 Immature Gran % (Auto) 0.6 H Neut % (Auto) 89.5 H Lymph % (Auto) 5.3 L [place] % (Auto) 4.4 Eos % (Auto) 0.1 Baso % (Auto) 0.1 Lymph # (Auto) 0.9 L [place] # (Auto) 0.7 Eos # (Auto) 0.0 Baso # (Auto) 0.0 Abs Immat Gran (auto) 0.10 H Absolute Neuts (auto) 14.3 H Absolute Nucleated RBC 0.000 Nucleated RBC % (auto) 0.0 Anion Gap 11 L Estim Creat Clear Calc 90.8 Estimated GFR > 60 POC Glucose 133 H Random Glucose 127 H Calcium 8.7 <Eloise Henriquez - Last Filed: 03/28/25 08:50> Microbiology Microbiology Results: Microbiology 03/25/25 18:53 Blood Culture - Preliminary Blood - Venous No growth after 48 hours. 03/25/25 18:53 Blood Culture - Preliminary Blood - Venous No growth after 48 hours. <Eloise Henriquez - Last Filed: 03/28/25 08:50> Procedures Date of Service Date of Service: 03/28/25 <Eloise Henriquez - Last Filed: 03/28/25 08:50> 03/31/25 <Britt Owens PA-C - Last Filed: 03/31/25 09:43> Progress Note: A&P Assessment and plan (1) S/P cholecystectomy: Status: Acute <Eloise Henriquez - Last Filed: 03/28/25 08:50> Assessment and Plan: Balta Mendoza is a 79 year old male with PMH of PAF on eliquis (last dose 03/24/25 morning), HTN and GERD admitted with acute cholecystitis now POD#1 s/p planned laperoscoptic cholesystectomy that was converted into an open cholecystectomy due to lack of visualization of the gallbladder. He is doing well overall and progressing through the expecting post-surgical course. He is ambulating and reports minimal pain. VSS despite an episode of hypoxia with an O2Sat of 86 which has resolved. Labs show leukocytosis likely reactive to surgery. Lack of fever and he is comfortable suggest an infectious casue is less likely. Plan Discontinue liquid diet and start PO Encourage ambulation and incentive spirometry 10x every hour Continue IV antibiotics <Eloise Henriquez - Last Filed: 03/28/25 08:50> Balta Mendoza is a 79 year old male with PMH of PAF on eliquis (last dose 03/24/25 morning), HTN and GERD admitted with acute cholecystitis now POD#1 s/p planned laperoscoptic cholesystectomy that was converted into an open cholecystectomy due to lack of visualization of the gallbladder. He is doing well overall and progressing through the expecting post-surgical course. He is ambulating and reports minimal pain. VSS despite an episode of hypoxia with an O2Sat of 86 which has resolved. Labs show leukocytosis likely reactive to surgery. Lack of fever and he is comfortable suggest an infectious casue is less likely. Plan Discontinue liquid diet and start PO Encourage ambulation and incentive spirometry 10x every hour Continue IV antibiotics Agree with above assessment. See other progress note for details. <Britt Owens PA-C - Last Filed: 03/31/25 09:43> Time Spent With Patient Time: Total time managing care of this patient today ____ minutes. <Eloise Henriquez - Last Filed: 03/28/25 08:50> Quality Stroke Does the patient have a stroke diagnosis?: No <Eloise Henriquez - Last Filed: 03/28/25 08:50> VTE Prior VTE?: No <Eloise Henriquez - Last Filed: 03/28/25 08:50> VTE Risk Level:: Surgical - moderate <Eloise Henriquez - Last Filed: 03/28/25 08:50> VTE Device Contraindication: N/A - Device Ordered <Eloise Henriquez - Last Filed: 03/28/25 08:50> VTE Drug Contraindication: Treatment Not Indicated <Eloise Henriquez - Last Filed: 03/28/25 08:50>
[2025-03-28 07:47] VITALS: BP 123/63; PULSE 58; RESP 16; TEMP 36.3; O2SAT 92
--- NOTE | 2025-03-28 08:07 | PM.PNGS ---
Subjective Subjective Date of Service: 03/28/25 <Britt Owens PA-C - Last Filed: 03/28/25 08:12> 03/28/25 <Abram De La Fuente MD - Last Filed: 03/28/25 15:03> Interval history: C/o severe pain with deep breaths and movement. Denies pain at rest. Has been OOB and ambulating without difficulty. Tolerating clear liquids and feels hungry. Passing flatus. <Britt Owens PA-C - Last Filed: 03/28/25 08:12> Physical Exam Vital Signs: Vital Signs: Last Vital Signs Temp 97.3 F 03/28/25 07:47 Pulse 58 03/28/25 07:47 Resp 16 03/28/25 07:47 BP 123/63 03/28/25 07:47 Pulse Ox 92 03/28/25 07:47 O2 Del Method Room Air 03/28/25 07:47 O2 Flow Rate 3 03/27/25 11:15 BMI result Body Mass Index 34.6 <Britt Owens PA-C - Last Filed: 03/28/25 08:12> Const: General: comfortable, no acute distress and alert <DARLINE Sheikh Last Filed: 03/28/25 08:12> Orientation/consciousness: patient oriented x3 <DARLINE Sheikh Last Filed: 03/28/25 08:12> Resp: Effort & Inspection: normal respiratory effort, able to speak in complete sentences and not tachypneic <Britt Owens PA-C - Last Filed: 03/28/25 08:12> GI: Other: dressings clean and intact SHERI drain serosanguineous <Britt Owens PA-C - Last Filed: 03/28/25 08:12> Inspection: Yes distended <DARLINE Sheikh Last Filed: 03/28/25 08:12> Palpation (GI): Soft to palpation, Tenderness to palpation present (GI) (mild incisional) and no guarding <DARLINE Sheikh Last Filed: 03/28/25 08:12> Percussion: Yes tympanic to percussion <Britt Owens PA-C - Last Filed: 03/28/25 08:12> Skin: General skin exam: no rashes or lesions noted <Britt Owens PA-C - Last Filed: 03/28/25 08:12> Neuro: General: patient oriented x3 and moves all extremities <Britt Owens PA-C - Last Filed: 03/28/25 08:12> Objective Data Active Medications Apixaban (Apixaban 5 Mg Tablet) 5 mg PO BID [facility] Atenolol (Atenolol 25 Mg Tablet) 25 mg PO DAILY [facility]; Protocol Last Admin: 03/27/25 13:23 Dose: 25 mg Documented By: LUCILLE Atorvastatin Calcium (Atorvastatin Calcium 40 Mg Tablet) 40 mg PO DAILY [facility] Last Admin: 03/27/25 13:23 Dose: 40 mg Documented By: LUCILLE Calcium Carbonate (Calcium Carbonate 750 Mg Tab.Chew) 750 mg PO Q4H PRN PRN Reason: Heartburn Last Admin: 03/26/25 17:35 Dose: 750 mg Documented By: LUCILLE Docusate Sodium (Docusate Sodium 100 Mg Capsule) 100 mg PO BID [facility] Famotidine (Famotidine 20 Mg Tablet) 20 mg PO BID PRN PRN Reason: heartburn Last Admin: 03/26/25 21:35 Dose: 20 mg Documented By: SAÚL Gabapentin (Gabapentin 300 Mg Capsule) 300 mg PO BID [facility] Last Admin: 03/27/25 20:11 Dose: Not Given Documented By: GERMAN Non-Admin Reason: Patient Refused Hydromorphone HCl (Hydromorphone Hcl 2 Mg Tablet) 2 mg PO Q3H PRN PRN Reason: Pain, Moderate(Pain Scale 4-6) Last Admin: 03/27/25 16:40 Dose: 2 mg Documented By: LUCILLE Dextrose/Lactated Ringer's (D5lr) 1,000 mls @ 125 mls/hr IVCONT .Q8H [facility] Last Infusion: 03/28/25 06:25 Dose: 125 mls/hr Documented By: GERMAN Metronidazole (Flagyl) 500 mg in 100 mls @ 100 mls/hr IV Q8H [facility] Last Infusion: 03/28/25 05:51 Dose: Infused Documented By: GERMAN Ceftriaxone Sodium 1 gm/ (Sodium Chloride) 50 mls @ 100 mls/hr IV Q12H [facility] Last Infusion: 03/28/25 06:31 Dose: Infused Documented By: GERMAN Lisinopril (Lisinopril 40 Mg Tablet) 40 mg PO DAILY [facility]; Protocol Last Admin: 03/27/25 13:23 Dose: 40 mg Documented By: LUCILLE Magnesium Hydroxide (Milk Of Magnesia 30 Ml Oral.Susp) 30 ml PO DAILY PRN PRN Reason: Constipation Melatonin (Melatonin 3 Mg Tablet) 6 mg PO BEDTIME PRN PRN Reason: Insomnia Omeprazole (Omeprazole 20 Mg Capsule.Dr) 20 mg PO DAILY@0630 [facility] Last Admin: 03/28/25 04:44 Dose: 20 mg Documented By: GERMAN Ondansetron HCl (Ondansetron Hcl 4 Mg/2 Ml Vial) 4 mg IVPUSH QID PRN PRN Reason: Nausea Last Admin: 03/27/25 12:33 Dose: 4 mg Documented By: LUCILLE Polyethylene Glycol (Polyethylene Glycol 3350 17 Gm Powd.Pack) 17 gm PO DAILY [facility] Sodium Chloride (0.9 % Sodium Chloride Flush 3 Ml Syringe) 3 ml IVFLUSH QSHIFT [facility] Last Admin: 03/28/25 07:12 Dose: Not Given Documented By: YVONNE Non-Admin Reason: IV Running Tamsulosin HCl (Tamsulosin Hcl 0.4 Mg Capsule) 0.8 mg PO DAILY [facility] Last Admin: 03/27/25 13:23 Dose: 0.8 mg Documented By: LUCILLE <Britt Owens PA-C - Last Filed: 03/28/25 08:12> Labs CBC & Chem 7: 03/28/25 05:17 03/28/25 05:17 <Britt Owens PA-C - Last Filed: 03/28/25 08:12> Labs: Laboratory Results - last 24 hr 03/27/25 03/28/25 10:55 05:17 MCV 90.8 MCH 30.6 MCHC 33.7 RDW 13.4 Plt Count 176 MPV 11.2 Immature Gran % (Auto) 0.6 H Neut % (Auto) 89.5 H Lymph % (Auto) 5.3 L [place] % (Auto) 4.4 Eos % (Auto) 0.1 Baso % (Auto) 0.1 Lymph # (Auto) 0.9 L [place] # (Auto) 0.7 Eos # (Auto) 0.0 Baso # (Auto) 0.0 Abs Immat Gran (auto) 0.10 H Absolute Neuts (auto) 14.3 H Absolute Nucleated RBC 0.000 Nucleated RBC % (auto) 0.0 Anion Gap 11 L Estim Creat Clear Calc 90.8 Estimated GFR > 60 POC Glucose 133 H Random Glucose 127 H Calcium 8.7 <Britt Owens PA-C - Last Filed: 03/28/25 08:12> Microbiology Microbiology Results: Microbiology 03/25/25 18:53 Blood Culture - Preliminary Blood - Venous No growth after 48 hours. 03/25/25 18:53 Blood Culture - Preliminary Blood - Venous No growth after 48 hours. <Britt Owens PA-C - Last Filed: 03/28/25 08:12> Procedures Date of Service Date of Service: 03/28/25 <Britt Owens PA-C - Last Filed: 03/28/25 08:12> 03/28/25 <Abram De La Fuente MD - Last Filed: 03/28/25 15:03> Progress Note: A&P Assessment and plan (1) Acute cholecystitis: Status: Acute <Britt Owens PA-C - Last Filed: 03/28/25 08:12> Assessment and Plan: No events reported Tolerating liquids Looks well Abdomen is soft and benign SHERI drain scanty, serosanguineous, nonbilious Okay to advance diet as tolerated Encouraged ambulation Pain management Seen and examined independently <Abram De La Fuente MD - Last Filed: 03/28/25 15:03> (2) S/P cholecystectomy: Status: Acute <Britt Owens PA-C - Last Filed: 03/28/25 08:12> Assessment and Plan: POD #1 s/p attempted laparoscopic converted to open cholecystectomy. Patient doing fairly well post op. VSS. Abd exam benign- soft, he is distended but passing flatus, appropriate post op tenderness, dressings clean and intact. SHERI drain serosanguineous. Will advance to solid diet. Cont OOB/ambulation increasing acitivty and IS use. Cont IV abx for now. Home in the next 1-2 days when pain controlled on oral analgesics, tolerating diet. Will likely remove drain prior. <Britt Owens PA-C - Last Filed: 03/28/25 08:12> Time Spent With Patient Time: Total time managing care of this patient today ____ minutes. <Britt Owens PA-C - Last Filed: 03/28/25 08:12> Quality Stroke Does the patient have a stroke diagnosis?: No <DARLINE Sheikh Last Filed: 03/28/25 08:12> VTE Prior VTE?: No <DARLINE Sheikh Last Filed: 03/28/25 08:12> VTE Risk Level:: Surgical - moderate <DARLINE Sheikh Last Filed: 03/28/25 08:12> VTE Device Contraindication: N/A - Device Ordered <DARLINE Sheikh Last Filed: 03/28/25 08:12> VTE Drug Contraindication: Treatment Not Indicated <DARLINE Sheikh Last Filed: 03/28/25 08:12>
--- NOTE | 2025-03-28 08:08 | HO.POSTANES ---
Post Anesthesia Evaluation Post Anesthesia Evaluation Date of Service: 03/28/25 Vital Signs: Vital Signs Temp Pulse Resp BP Pulse Ox O2 Del Method 03/28/25 07:47 97.3 F 58 16 123/63 92 Room Air 03/28/25 03:17 98.7 F 61 18 127/69 92 Room Air Anesthesia: General Mental Status: Awake Pain Control: Satisfactory Nausea/Vomiting: None Hydration: Adequate Anesthesia-Related Issues: No Anes. Related Issues
[2025-03-28 08:52] VITALS: BP 123/63; PULSE 66
[2025-03-28 08:53] VITALS: BP 123/63
[2025-03-28 15:38] VITALS: BP 121/62; PULSE 60; RESP 20; TEMP 36.7; O2SAT 92
--- NOTE | 2025-03-28 16:16 | MHC.CM.PN ---
PER EHR, PT NOT MEDICALLY CLEARED, PLAN TO ADVANCE DIET AND DC EXPECTED IN 1-2 DAYS DCP: HOME VIA PRIVATE TRANSPORT
[2025-03-28 19:45] VITALS: BP 131/69; PULSE 61; RESP 20; TEMP 36.2; O2SAT 92
[2025-03-29] MEDS: Dextrose 5 % and Lactated Ring 1,000 ML 125 ML IVCONT (01:23)
[2025-03-29 03:06] VITALS: BP 135/71; PULSE 60; RESP 18; TEMP 36; O2SAT 93
[2025-03-29] MEDS: metroNIDAZOLE/NS 500 MG/100 ML PIGGYBACK 100 MG IV ×3 (04:52→21:22)
[2025-03-29 07:52] VITALS: BP 149/71; PULSE 51; RESP 16; TEMP 36.7; O2SAT 92
[2025-03-29] MEDS: 0.9 % Sodium Chloride Flush 3 ML SYRINGE IVFLUSH ×3 (07:57→22:28)
[2025-03-29 08:44] VITALS: BP 131/72; PULSE 64; O2SAT 94
--- NOTE | 2025-03-29 09:10 | PM.PNGS ---
Subjective Subjective Date of Service: 03/29/25 Interval history: Patient is doing well walking around moving eating abdomen feels a little distended he is passing some gas but feels like he really needs to have a bowel movement. SHERI drain not draining very much other than serosanguineous fluid Physical Exam Vital Signs: Vital Signs: Last Vital Signs Temp 98.0 F 03/29/25 07:52 Pulse 64 03/29/25 08:44 Resp 16 03/29/25 07:52 BP 131/72 03/29/25 08:44 Pulse Ox 94 03/29/25 08:44 O2 Del Method Room Air 03/29/25 08:44 O2 Flow Rate 3 03/27/25 11:15 BMI result Body Mass Index 34.6 Const: Orientation/consciousness: patient oriented x3 Eyes: Other: Nonicteric Resp: Effort & Inspection: normal respiratory effort Auscultation: clear to auscultation bilaterally Cardio: Rate: regular rate Rhythm: regular rhythm GI: Other: Abdomen is soft does have some active bowel sounds dressings are intact SHERI drain with serosanguineous fluid Skin: Other: Nonicteric Neuro: General: patient oriented x3 Psych: Appearance: grossly normal Mental Status: mental status grossly normal Speech and movement: Normal speech and movement present Objective Data Active Medications Apixaban (Apixaban 5 Mg Tablet) 5 mg PO BID [facility] Last Admin: 03/29/25 08:46 Dose: 5 mg Documented By: AAYUSH Atenolol (Atenolol 25 Mg Tablet) 25 mg PO DAILY [facility]; Protocol Last Admin: 03/29/25 08:45 Dose: 25 mg Documented By: AAYUSH Atorvastatin Calcium (Atorvastatin Calcium 40 Mg Tablet) 40 mg PO DAILY [facility] Last Admin: 03/29/25 08:45 Dose: 40 mg Documented By: AAYUSH Calcium Carbonate (Calcium Carbonate 750 Mg Tab.Chew) 750 mg PO Q4H PRN PRN Reason: Heartburn Last Admin: 03/26/25 17:35 Dose: 750 mg Documented By: LUCILLE Docusate Sodium (Docusate Sodium 100 Mg Capsule) 100 mg PO BID [facility] Last Admin: 03/29/25 08:45 Dose: 100 mg Documented By: AAYUSH Famotidine (Famotidine 20 Mg Tablet) 20 mg PO BID PRN PRN Reason: heartburn Last Admin: 03/26/25 21:35 Dose: 20 mg Documented By: SAÚL Gabapentin (Gabapentin 300 Mg Capsule) 300 mg PO BID [facility] Last Admin: 03/29/25 08:46 Dose: Not Given Documented By: AAYUSH Non-Admin Reason: Patient Refused Hydromorphone HCl (Hydromorphone Hcl 2 Mg Tablet) 1 mg PO Q3H PRN PRN Reason: Pain, Moderate(Pain Scale 4-6) Last Admin: 03/29/25 06:45 Dose: 1 mg Documented By: SATURNINO Dextrose/Lactated Ringer's (D5lr) 1,000 mls @ 125 mls/hr IVCONT .Q8H [facility] Last Infusion: 03/29/25 08:01 Dose: 0 mls/hr Documented By: AAYUSH Metronidazole (Flagyl) 500 mg in 100 mls @ 100 mls/hr IV Q8H [facility] Last Infusion: 03/29/25 06:04 Dose: Infused Documented By: SATURNINO Ceftriaxone Sodium 1 gm/ (Sodium Chloride) 50 mls @ 100 mls/hr IV Q12H [facility] Last Infusion: 03/29/25 06:33 Dose: Infused Documented By: SATURNINO Lisinopril (Lisinopril 40 Mg Tablet) 40 mg PO DAILY [facility]; Protocol Last Admin: 03/29/25 08:45 Dose: 40 mg Documented By: AAYUSH Magnesium Hydroxide (Milk Of Magnesia 30 Ml Oral.Susp) 30 ml PO DAILY PRN PRN Reason: Constipation Melatonin (Melatonin 3 Mg Tablet) 6 mg PO BEDTIME PRN PRN Reason: Insomnia Omeprazole (Omeprazole 20 Mg Capsule.Dr) 20 mg PO DAILY@0630 [facility] Last Admin: 03/29/25 06:03 Dose: 20 mg Documented By: SATURNINO Ondansetron HCl (Ondansetron Hcl 4 Mg/2 Ml Vial) 4 mg IVPUSH QID PRN PRN Reason: Nausea Last Admin: 03/27/25 12:33 Dose: 4 mg Documented By: LUCILLE Polyethylene Glycol (Polyethylene Glycol 3350 17 Gm Powd.Pack) 17 gm PO DAILY [facility] Last Admin: 03/29/25 08:46 Dose: 17 gm Documented By: AAYUSH Sodium Chloride (0.9 % Sodium Chloride Flush 3 Ml Syringe) 3 ml IVFLUSH QSHIFT [facility] Last Admin: 03/29/25 07:57 Dose: 3 ml Documented By: AAYUSH Tamsulosin HCl (Tamsulosin Hcl 0.4 Mg Capsule) 0.8 mg PO DAILY [facility] Last Admin: 03/29/25 08:45 Dose: 0.8 mg Documented By: AAYUSH Labs 03/28/25 05:17 03/28/25 05:17 Procedures Date of Service Date of Service: 03/29/25 Progress Note: A&P Assessment and plan (1) S/P cholecystectomy: Status: Acute Assessment and Plan: Patient is a 79-year-old male 3 days status post lap converted to open cholecystectomy for cholecystitis doing quite well. Patient is ambulating moving around tolerating some p.o. diet. We will continue with IV antibiotics overnight into tomorrow with plan to check CBC and probable pull out of the drain and potential DC home if doing well. He understands and agrees Time Spent With Patient Time: Total time managing care of this patient today ____ minutes. Quality Stroke Does the patient have a stroke diagnosis?: No VTE Prior VTE?: No VTE Risk Level:: Surgical - moderate VTE Device Contraindication: N/A - Device Ordered VTE Drug Contraindication: Treatment Not Indicated
[2025-03-29 15:31] VITALS: BP 142/74; PULSE 57; RESP 18; TEMP 36.4; O2SAT 94
[2025-03-29 20:00] VITALS: BP 144/71; PULSE 60; RESP 18; TEMP 36.3; O2SAT 93
[2025-03-30 03:18] VITALS: BP 148/70; PULSE 62; RESP 18; TEMP 36; O2SAT 93
[2025-03-30] MEDS: metroNIDAZOLE/NS 500 MG/100 ML PIGGYBACK 100 MG IV (04:09)
[2025-03-30 06:41] LABS: MANUAL DIFF FLAG NO
[2025-03-30 06:43] LABS: Hematocrit 38.1 % (42.0-52.0); Hemoglobin 13.0 g/dl (14.0-18.0); Imm Gran Abs Auto 0.27 X10*3/uL (0.00-0.03); Imm Gran Pct Auto 2.9 % (0.0-0.4); Lymphocytes Absolute Auto 1.6 X10*3/uL (1.2-4.9); Mean Corpuscular HGB Conc 34.1 g/dl (31.0-36.0); Mean Corpuscular Hemoglobin 30.4 pg (27.0-33.0); Mean Corpuscular Volume 89.0 fL (80.0-98.0); NRBC Abs Auto 0.000 X10*3/uL (0.0-0.012); NRBC Pct Auto 0.0 /100WBC (0.0-0.2); Platelet Count 231 X10*3/uL (160-400); Red Blood Count 4.28 X10*6/uL (4.60-5.80); White Blood Count 9.4 X10*3/uL (4.8-10.8)
[2025-03-30 08:00] VITALS: BP 164/67; PULSE 56; RESP 14; TEMP 36.5; O2SAT 95
[2025-03-30 09:27] VITALS: BP 140/72; PULSE 70
[2025-03-30] MEDS: 0.9 % Sodium Chloride Flush 3 ML SYRINGE IVFLUSH (09:28)
--- NOTE | 2025-03-30 13:30 | P.DS_ITS ---
DS: Providers Provider Date of Service: 03/30/25 Date of admission: 03/25/25 21:04 Date of discharge: 03/30/25 Primary care physician: Yassine Schultz MD Consults: 03/25/25 21:03 Consult to Hospitalist Routine Comment: Consulting Provider: [facility] Hospitalists Reason For Exam: preop risk stratification, cholecystitis Attending physician on discharge: Funmi James DS: Diagnosis Discharge Diagnosis (1) S/P cholecystectomy: Status: Acute DS: Summary Status at Discharge Functional status at discharge: independent ambulation Overall status at discharge: patient is progressing back to baseline Time Attestation Total time managing care of this patient today: 25 mintues. Discharge Coordination Time (in mins): 25 Quality: Safe Use of Opioids Does Pt have an Active Cancer Diagnosis on the Problem List?: No Quality: Stroke Does the patient have a stroke diagnosis?: No Physical Exam Vital Signs: Vital Signs: Last Vital Signs Temp 97.7 F 03/30/25 08:00 Pulse 70 03/30/25 09:27 Resp 14 03/30/25 08:00 BP 140/72 H 03/30/25 09:27 Pulse Ox 95 03/30/25 08:00 O2 Del Method Room Air 03/30/25 08:00 O2 Flow Rate 3 03/27/25 11:15 BMI result Body Mass Index 34.6 Const: General: cooperative, healthy appearing, comfortable and no acute distress Orientation/consciousness: patient oriented x3 Eyes: Other: Nonicteric Resp: Effort & Inspection: normal respiratory effort Auscultation: clear to auscultation bilaterally GI: Other: abdomen is soft nondistended mild tenderness SHERI drain serosanguineous fluid minimal removed Skin: Other: nonicteric Neuro: General: patient oriented x3 DS: Data Data Completed and Pending Pending studies at discharge: Pending at discharge 03/27/25 09:00 Surgical [PTH] Routine Labs on day of discharge: Laboratory Results - last 24 hr 03/30/25 06:02 WBC 9.4 RBC 4.28 L Hgb 13.0 L Hct 38.1 L MCV 89.0 MCH 30.4 MCHC 34.1 RDW 13.5 Plt Count 231 D MPV 10.8 Immature Gran % (Auto) 2.9 H Neut % (Auto) 67.9 Lymph % (Auto) 16.7 L [place] % (Auto) 8.4 Eos % (Auto) 3.1 Baso % (Auto) 1.0 Lymph # (Auto) 1.6 [place] # (Auto) 0.8 Eos # (Auto) 0.3 Baso # (Auto) 0.1 Abs Immat Gran (auto) 0.27 H Absolute Neuts (auto) 6.4 Absolute Nucleated RBC 0.000 Nucleated RBC % (auto) 0.0 Preliminary micro results at discharge 03/25/25 18:53 Blood Culture - Preliminary Blood - Venous No growth after 48 hours. 03/25/25 18:53 Blood Culture - Preliminary Blood - Venous No growth after 48 hours. Imaging US - abdomen: Radiologist's impression: Patient: Balta Mendoza MR#: [id number] : 1945 Acct:[id number] Age/Sex: 79 / M ADM Date: 03/25/25 Loc: [place] [address]: Tim Marquez MD Ordering Physician: Haile Randall MD Date of Service: 03/25/25 Procedure(s): US abdomen limited Accession Number(s): [id number] cc: Haile Randall MD; Physician,Unknown ~ Reason for Exam: ? CHOLECYSTITIS CLINICAL HISTORY: ? CHOLECYSTITIS US abdomen limited Comparison: CT/SR - CT ABDOMEN PELVIS W IV CON - 03/25/25 19:04 EST Findings: The gallbladder is distended. Borderline gallbladder wall thickening. Sonographic king's sign is positive. Few tiny gallstones are noted in the region of the gallbladder neck. Common bile duct nondilated at 4 mm. Partially seen liver unremarkable. IMPRESSION: Distended gallbladder with positive sonographic King's sign. Gallstones. Borderline gallbladder wall thickening. The sonographic findings are concerning for early acute cholecystitis. Recommend surgical consultation. 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: CT scan - abdomen: Radiologist's impression: [address] [address] [address] Scan Report Signed with Addenda Patient: Balta Mendoza MR#: [id number] : 1945 Acct:[id number] Age/Sex: 79 / M ADM Date: 03/25/25 Loc: .ED Attending Dr: Ordering Physician: Haile Randall MD Date of Service: 03/25/25 Procedure(s): CT abdomen pelvis w IV con Accession Number(s): [id number] cc: Haile Randall MD; Physician,Unknown ~ Report Number: [id number]: Total DLP = 902.00 mGy-cm Reason for Exam: RUQ pain, tenderness ADDENDUMThis document has been electronically signed by: Rob Lewis MD on 03/25/2025 20:24:11 ADDENDUM: This report was discussed with Haile Randall MD on Mar 25, 2025 20:29:00 EST. This document has been electronically signed by: Harmony Narayanan on 03/25/2025 20:30:12 Addendum Dictated By: Rob Lewis MD Addendum Signed By: <Electronically signed by Rob Lewis MD in OV> 03/25/252030 Addendum Cosigned By: DD/ /08/2024 TD/TT: 03/25/2504/08/2030 CLINICAL HISTORY: RUQ pain, tenderness CT abdomen and pelvis with contrast Comparison: CT - CT ABDOMEN PELVIS W IV CON - 03/25/25 18:52 EST Findings: The lung bases are clear. The liver, spleen, pancreas, bilateral adrenal glands and bilateral kidneys without acute abnormality or abnormal enhancement. Small right-sided renal cysts are noted. The gallbladder is slightly distended. There is pericholecystic fat stranding and minimal gallbladder wall thickening. No significant biliary dilatation or radiopaque gallstones. the stomach and bowel loops are not dilated. There is sigmoid colon diverticulosis. Otherwise no focal colonic lesions or pneumatosis. Appendix is normal. No free fluid, collections or free air. There is nonspecific thickening of the wall of the cecum medially. There is no aortic dissection or aneurysm. No abdominopelvic lymphadenopathy. The bladder is normal. No acute soft tissue or skeletal abnormality in the abdomen or pelvis. Small fat containing umbilical hernia. Well-seated bilateral hip joint arthroplasties resulting in significant metallic artifact in the pelvic cavity. IMPRESSION: Findings most compatible with acute cholecystitis. Recommend confirmation with right upper quadrant ultrasound as well as surgical consultation. There is thickening of the wall of the cecum medially, incidental nonspecific finding. No priors for comparison. Recommend nonemergent GI consultation for direct visualization. 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 Continued atorvastatin 80 mg Tablet 40 mg PO DAILY atenolol 25 mg Tablet 25 mg PO DAILY tamsulosin 0.4 mg Capsule 0.8 mg PO DAILY gabapentin 300 mg Capsule 300 mg PO BID omeprazole 20 mg Capsule,Delayed Release(Dr/Ec) 20 mg PO DAILY@0630 hydrochlorothiazide 25 mg Tablet 25 mg PO DAILY lisinopril 40 mg Tablet 40 mg PO DAILY Eliquis 5 mg Tablet 5 mg PO BID multivitamin Tablet 1 tab PO DAILY ascorbic acid (vitamin C) [Vitamin C] 500 mg Tablet 1,000 mg PO DAILY cholecalciferol (vitamin D3) [Vitamin D3] 50 mcg (2,000 unit) Tablet 50 mcg PO DAILY zinc acetate 50 mg (zinc) Capsule 50 mg PO DAILY Discharge Orders: Discharge Order (Routine); Ordered 03/30/25 Ordered By: Funmi Rambissoon Diet: Low fat, low cholesterol Activity on Discharge: No heavy lifting Stand Alone Forms: Patient Portal Discharge page Print Language: Yakut Activity Restrictions/Additional Instructions: If the incision area is tender, you may apply an ice pack for short intervals (No more than 20 minutes on, followed by at least 20 minutes off). Do not apply heat. Do not use creams, lotions, or topical antibiotics. These can cause infection or allergic reaction. Ok to shower. You have cecille closing your incision and these will be removed approximately 10-14 days after surgery. Take Tylenol Extra-strength 1-2 tabs every 6 hours as needed. Oxycodone every 4- 6 hours as needed for pain. Colace 100 mg twice a day as needed for c onstipation. NO HEAVY LIFTING (>10lbs) or strenuous activity. Follow up in office. ([phone]) Call Your Doctor If: -Your temperature exceeds 101.5? F -You experience excessive pain or swelling -You have an unexpected reaction to medication -You have excessive bleeding -You experience continued vomiting/nausea -Your incision begins to separate -Your incision shows signs of infection such as increased redness, swelling, excessive pain, drainage (light blood or clear fluid is normal) or heat Care Plan Goals: Return to baseline health and resume normal activities following recovery period. Health Concerns: PAF on eliquis acute cholecystitis Plan of Treatment: s/p open cholecystectomy Pain control F/u in office in 1-2 weeks for wound check, staple removal F/u with PCP Assessment: Doing well post op. Patient Instructions: Low Fat Diet (GEN)
--- NOTE | 2025-03-30 13:37 | MHC.CM.PN ---
Patient medically cleared for dc home self care via private transport. IMM delivered.
--- NOTE | 2025-03-30 14:00 | PC.NURSE ---
Provider removed SHERI drain and changed abdominal dressing.
[2025-03-30 14:18] VITALS: BP 160/74; PULSE 69; RESP 16; TEMP 36.3; O2SAT 96
== END 2025-03-30 14:49 | disposition home or self-care (01) | DRG 416 ==
LOC: HO.ED 18:46 → HO.EDOVER 21:10 → HO.S3 03-26 05:10
PROVIDERS: Registered Nurse Emergency; Surgery; Admitting Provider Surgery; Emergency Provider Emergency Medicine; PCP Internal Medicine; Visit Provider Surgery
PROC: 0FT44ZZ Resection of Gallbladder, Percutaneous Endoscopic Approach (ICD-10-PCS; CPT 47562; principal; 2025-03-27 07:30)
DX: K80.00 Calculus of gallbladder with acute cholecystitis without obstruction (principal); K82.8 Other specified diseases of gallbladder; I48.0 Paroxysmal atrial fibrillation; K82.A1 Gangrene of gallbladder in cholecystitis; I10 Essential (primary) hypertension; N40.0 Benign prostatic hyperplasia without lower urinary tract symptoms; E66.811 Obesity, class 1; Z71.3 Dietary counseling and surveillance; Z68.34 Body mass index [BMI] 34.0-34.9, adult; Z79.01 Long term (current) use of anticoagulants; Z79.899 Other long term (current) drug therapy
CPT/HCPCS: 36415; 71046; 74177; 76705; 80048; 80076; 81001; 82947; 83605; 83690; 85025; 86140; 87040; 88304; 93005; 99285; J0665; J0696; J1100; J1171; J1836; J2003; J2371; J2405; J2704; J3010; J7120; Q9967

== ENCOUNTER → 2025-03-25 18:05 | Outpatient (BNV) | payer MEDICARE, SELFPAY | PROVIDERS: Admitting Provider Surgery; Emergency Provider Emergency Medicine; Visit Provider Internal Medicine Cardiovascular Disease | DX: R94.31 Abnormal electrocardiogram [ECG] [EKG] (principal); I48.91 Unspecified atrial fibrillation | CPT/HCPCS: 93010 ==

== ENCOUNTER → 2025-03-25 18:06 | Outpatient (BNV) | payer MEDICARE, SELFPAY | PROVIDERS: Emergency Provider Emergency Medicine; Visit Provider Radiology Diagnostic Radiology | DX: K63.89 Other specified diseases of intestine (principal); K80.20 Calculus of gallbladder without cholecystitis without obstruction; R07.81 Pleurodynia | CPT/HCPCS: 71046; 74177; 76705 ==

== ENCOUNTER → 2025-03-25 21:04 | Outpatient (BNV) | payer MEDICARE, SELFPAY | PROVIDERS: Admitting Provider Surgery; Emergency Provider Emergency Medicine; Visit Provider Physician Assistant Surgical | DX: K81.0 Acute cholecystitis (principal); Z90.49 Acquired absence of other specified parts of digestive tract | CPT/HCPCS: 99024 ==

== ENCOUNTER → 2025-03-25 21:04 | Outpatient (BNV) | payer MEDICARE, SELFPAY | PROVIDERS: Admitting Provider Surgery; Emergency Provider Emergency Medicine; Visit Provider Physician Assistant | DX: Z01.818 Encounter for other preprocedural examination (principal); K81.0 Acute cholecystitis | CPT/HCPCS: 99222 ==

== ENCOUNTER 2025-04-08 12:28 | Outpatient (AMB) | payer MEDICARE, SELFPAY ==
--- OUTSIDE RECORDS SUMMARY | 2024-02-21 04:30 | XMS_ITS ---
Author Organization [facility] Address [address] [address] Care Team Providers Care Beamer Helper Name Role Phone JANNA LAWLER Unavailable [phone] Elvin LUZ, Tristen Unavailable Unavailable MANUELA MEZA Unavailable [phone] REASON FOR VISIT Medicare Wellness Exam and lab review Encounters Encounter Location Date Provider Diagnosis [facility] [address] [address] 02/21/2024 MANUELA MEZA Plan Of Treatment No Information Progress Notes * ZIYAD SHAHDOB:[birth year] (79 yo M)Acc No.[id number]:02/21/2024 Progress Note Patient: ZIYAD HDEZ Cecelia Provider: Eliz MEZA PA-C :1945 A ge:78 Y S ex:Male Date:02/21/2024 Address:[address] [place], [id number] Subjective: * Chief Complaints: * 1 . Medicare Wellness Exam and lab review. * Medical History: Objective: * Vitals: Assessment: Plan: * Treatment: * Billing Information: * Visit Code: * Procedure Codes: * Electronic signature of JOSE ANTONIO HERMAN PA-C on 04/08/2025 at 04:03 PM EST Sign off status: Pending * Provider: Eliz MEZA PA-C Date: 1 Generated for Sonam be/Mundo/Franchescaitting on: 06/08/2024 04:03 PM EST
--- NOTE | 2025-04-08 12:31 | MHC.OFFVIS ---
Vital Signs 04/08/25 12:38 Height 5 ft 9 in Weight 227 lb 2 oz BMI 33.5 BP 131/65 Blood Pressure Location Rt brachial Position Sitting Pulse 65 Intake Visit Reasons: s/p giovanny Intake Note: This patient presents for a post-op assessment status post Laparoscopic converted to open cholecystectomy. (03/27/2025 Dr. Marquez) Pt c/o; no complaints at this time pertaining to surgery. 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 Initially had some pain with deep inspiration and coughing in the middle right abdomen but he at support with his hands which was helping the pain when coughing or sneezing. States this has resolved over the past few days. Otherwise eating well, no issues with urination. Has multiple soft bowel movements per day, stop taking Colace. Has resumed later activity, cuffless walks. This comfortable doing this. Has been avoiding heavy lifting. [facility] Medical History BPH (benign prostatic hyperplasia) Class 1 obesity Nocturnal hypoxemia HTN (hypertension) Paroxysmal A-fib Surgical History (Updated 04/08/25 @ 12:49 by Bogdan Kwon PA-C) History of cholecystectomy Hx of rotator cuff surgery Hx of bilateral hip replacements S/P excision of lipoma History of total replacement of right shoulder joint Social History Household Members: Spouse Housing: House Do you presently have visiting nurse or other home services: No Patient Tobacco Use Status: Former Tobacco user service: No Review of Systems Const All systems reviewed & are unremarkable except as noted in HPI and below Physical Exam Vital Signs: Last Vital Signs Pulse 65 04/08/25 12:38 BP 131/65 04/08/25 12:38 BMI result Body Mass Index 33.5 Const General: comfortable and no acute distress Orientation/consciousness: patient oriented x3 Resp Effort & Inspection: normal respiratory effort and able to speak in complete sentences GI Other: Incision sites, adenike in place. Intact, no erythema, no drainage, nontender. No fluid collection. Inspection: No distended Palpation (GI): Soft to palpation and nontender Neuro General: patient oriented x3 Assessment & Plan Assessment & Plan (1) History of cholecystectomy: Comment: Laparoscopic converted to open cholecystectomy Dr. Marquez, 03/27/2025 Code(s): Z90.49 - Acquired absence of other specified parts of digestive tract Category: Medical Plan 79-year-old male s/p laparoscopic converted to open cholecystectomy on 04/13/2025 Dr. Marquez returning office for routine follow up. Overall patient doing very well, not experiencing any pain. Initially had some pain with coughing which she was supporting his abdomen with his hands but states this is resolved. His appetite and bowel function are at baseline. No longer requiring Colace. Denies nausea vomiting. On exam his abdomen is soft and benign. Adenike are in place, removed all the adenike in the office today, will incision sites appear intact, healing well, no evidence of infection at this time. He is okay to keep these open to air, recommended no creams, no baths. We will continue with activity restrictions no heavy lifting greater than 15 20 lb for the next month. He is agreeable this, states he is not lifting anything heavier than a letter. He is actually tolerating late activity such as walking and feels comfortable doing this. He is okay to continue this. He will return in about 2-3 weeks for re-evaluation. Can call sooner with any questions or concerns. Coding Level of Care Code Global (04788) Diagnoses History of cholecystectomy Z90.49
[2025-04-08 12:38] VITALS: BP 131/65; PULSE 65; BMI 33.5
--- OUTSIDE RECORDS SUMMARY | 2025-04-08 16:03 | XMS_ITS | Patient Health Record ---
Author Organization [facility] Address [address] [place] [address] Care Team Providers Care Intermediate Frame Tender Name Role Phone Tristen Oconnor MD Primary Care Provider Duran Rivers Unavailable [phone] Tristen Oconnor Unavailable Unavailable Reason For Referral No Information Plan Of Treatment No Information Insurance Providers Payer Name Payer Address Payer Phone Subscriber Number Group Number Insured Name Patient Relationship to Insured Coverage Start Date Coverage End Date Medicare Part B [address] [place] Ang[place] [phone] [id number] Balta Rodríguez Self - patient is the insured [facility] [address] [address] [place] [address] [phone] [id number] Balta Rodríguez Self - patient is the insured
--- OUTSIDE RECORDS SUMMARY | 2025-04-08 16:03 | XMS_ITS | Patient Health Record ---
Author Organization [facility] Address [address] [address] Care Team Providers Care Jewel Stripper Name Role Phone JANNA LAWLER Unavailable [phone] Tristen Wesley MD Unavailable Unavailable DR TRISTEN WESLEY Unavailable [phone] MANUELA MEZA Unavailable [phone] Allergies Allergen (clinical drug ingredient) Drug/Non Drug [...] Status W/U Status Risk Notes Problem Hypothyroidism (65899371) Hypothyroidism, unspecified (E03.9) Active confirmed Problem Mixed hyperlipidemia (607987279) Mixed hyperlipidemia (E78.2) Active confirmed Problem Chronic atrial fibrillation (189454609) Chronic atrial fibrillation (I48.2) Active confirmed Problem Polyarthritis (454146757) Polyarthritis, unspecified (M13.0) Active confirmed Problem Benign prostatic hypertrophy without outflow obstruction (366711251) Benign prostatic hyperplasia without lower urinary tract symptoms (N40.0) Active confirmed Problem Chronic fatigue syndrome (42907113) Chronic fatigue (R53.82) Active confirmed Problem Essential hypertension (43392492) Essential hypertension (I10) Active confirmed Problem Disorder of lumbar disc (933050365) Lumbar disc disorder (M51.9) Active confirmed Problem Hypothyroidism (76631569) Hypothyroidism, unspecified type (E03.9) Active confirmed Problem Displacement of lumbar intervertebral disc without myelopathy (78988529) 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) Active confirmed Problem Gastroesophageal reflux disease (417673841) Gastroesophageal reflux disease, esophagitis presence not specified (K21.9) Active confirmed Problem Gout (80586256) Acute gout involving toe of left foot, unspecified cause (M10.9) Active confirmed Problem Vitamin D deficiency (98651453) Vitamin D deficiency (E55.9) Active confirmed Problem Benign prostatic hyperplasia (186702138) Prostate hypertrophy (N40.0) Active confirmed Problem Localized, primary osteoarthritis of the pelvic region and thigh (118657469) 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) Active confirmed Problem Atrial fibrillation (68020595) Paroxysmal A-fib (I48.0) Active confirmed Problem Cataract (075893182) Cataract of both eyes, unspecified cataract type (H26.9) Active confirmed Problem Degenerative disc disease (73298277) DDD (degenerative disc disease), lumbar (M51.36) Active confirmed Problem Body mass index 30.00 to 34.99 (215543829407555) BMI 31.0-31.9,adult (Z68.31) Active confirmed Problem Obese class II (290202228149437) BMI 35.0-35.9,adult (Z68.35) Active confirmed Problem Plain X-ray result abnormal (904032655) Abnormal x-ray (R93.89) Active confirmed Problem Age-related cataract (88819724) Senile cataract of right eye, unspecified age-related cataract type (H25.9) Active confirmed Vital Signs Heart Rate 84 /min 07/11/2024 Temperature 98.3 degrees Fahrenheit 07/11/2024 Blood pressure diastolic 82 mm Hg 07/11/2024 Oximetry 98 % 07/11/2024 Height 70 in 07/11/2024 Blood pressure systolic 134 mm Hg 07/11/2024 Weight 221 lbs 07/11/2024 BMI 31.71 kg/m2 07/11/2024 Procedures Procedure Date Ordered Date Performed Result Body Sit e EKG 06/11/2024 06/11/2024 N/A Encounters Encounter Location Date Provider Diagnosis [facility] [address] [place] [address] 06/11/2024 TRISTEN WESLEY Preoperative clearan ce Z01.818 ; Essential hypertension I10 ; Paroxysmal A-fib I48.0 ; Mixed hyperlipidemia E78.2 ; Cataract of both eyes, unspecified cataract type H26.9 and Benign prostatic hyperplasia without lower urinary tract symptoms N40.0 [facility] [address] [place] [address] 06/11/2024 TRISTEN WESLEY [facility] [address] [place] [address] 07/11/2024 MANUELA MEZA Preop examination Z01.818 ; [...] Date Coverage End Date [employer] [address] [address] [place] [address] [id number] ZIYAD SHAH Self - patient is the insured Medical (General) History Medical History History ICD Code high blood pressure heart disease Surgical History Surgery Date(Month/Year) (R) rotator cuff repair 2003 (L) rotator cuff repair 2010 (L) hip replacement 2016 (R) wrist injection 2018 shoulder surgery 2021 Hospitalization History Reason Date(Month/Year) see above hip replacement 2016
--- OUTSIDE RECORDS SUMMARY | 2025-04-08 16:04 | XMS_ITS | Clinical Summary ---
Author Organization [facility] it Address [address] [place] [address] Care Team Providers Care Engraver Apprentice Decorative Name Role Phone Yassine Schultz MD Primary Care Provider [phone] Surgical History Surgery Date Site/Laterality Comments SHOULDER SURGERY 2003 Left PROCEDURE: HISTORICAL SHOULDER SURGERY; COMMENT: Dr. Corea - rotator cuff repair SHOULDER ARTHROSCOPY 2010 Right PROCEDURE: NC SURGICAL ARTHROSCOPY SHOULDER W/LSS&RESCJ ADS; COMMENT: Dr. Corea OTHER SURGICAL HISTORY 2016 Left PROCEDURE: NC ARTHRP ACETBLR/PROX FEM PROSTC AGRFT/ALGRFT; COMMENT: Dr. [...] Health Maintenance Due Date Last Done Comments Zoster Vaccines (1 of 2) 1996 RSV Immunization Adult Patients (1 - 1-dose 75+ series) 2021 Cholesterol Screening (Lipid Panel) 04/16/2022 Falls Risk Assessment 04/16/2022 Hepatitis C Screening 04/16/2022 Social Influencers of Health Screening 04/16/2022 Hypertension/CHF/CAD Annual BMP Blood Test 04/30/2022 Depression Screening 05/15/2024 COVID-19 Vaccine ( season) 2025 03/16/2021, 08/10/2020, 07/13/2020 Influenza Vaccine (#1) 2025 4, 02/12/2023, 01/13/2022, Additional history exists DTaP,Tdap,and Td Vaccines (4 - Td or Tdap) 02/02/2031 02/02/2021, 05/15/2016, 01/25/2011 Pneumococcal Vaccine: 50+ Years Completed 03/20/2020, 05/15/2019, 04/02/2019, Additional history exists HIB Vaccines Aged Out No longer eligi [...] to complete this topic RSV Immunization Patients Under 20 months Aged Out No longer eligible based on patient's age to complete this topic Varicella Vaccines Aged Out No longer eligible based on patient's age to complete this topic Advance Directives Documents on File Type Date Recorded Patient Checking Department Supervisor Expl anation Health Care Decision (hx) 07/19/2016 AD ASH DIRECTIVE Health Care Decision (hx) 07/19/2016 AD ASH DIRECTIVE Health Care Decision (hx) 07/19/2016 AD ASH DIRECTIVE Care Teams Engraver Apprentice Decorative Relationship Specialty Start Date End Date Yassine Schultz MD PCP - General Internal Medicine 10/19/18
--- OUTSIDE RECORDS SUMMARY | 2025-04-08 16:04 | XMS_ITS | Clinical Summary ---
Author Organization [facility] Address [address] [place] [address] Care Team Providers Care Custodial Officer Name Role Phone Unavailable Primary Care Provider [...] patient's age to complete this topic Insurance [facility]
== END 2025-04-08 12:54 | disposition home or self-care (01) ==
LOC: HO.HGS 12:28
PROVIDERS: PCP Internal Medicine
DX: Z90.49 Acquired absence of other specified parts of digestive tract (principal)
CPT/HCPCS: 99024

== ENCOUNTER → 2025-04-08 12:28 | Outpatient (BNVA) | payer MEDICARE, SELFPAY | PROVIDERS: PCP Internal Medicine | DX: Z98.890 Other specified postprocedural states (principal); Z90.49 Acquired absence of other specified parts of digestive tract | CPT/HCPCS: 99212 ==

== ENCOUNTER 2025-04-23 09:22 | Outpatient (AMB) | payer MEDICARE, SELFPAY ==
--- NOTE | 2025-04-23 09:27 | A.OFFVIS_ITS ---
Vital Signs 04/23/25 09:32 Height 5 ft 9 in Weight 229 lb 4.492 oz BMI 33.9 Intake Visit Reasons: post op Intake Note: Patient is seen in office for 2 weeks follow up visit, post cholecystectomy. Pt c/o: pain/lump in the smaller abdominal incisison above the belly button, pain radiates to the left side of the abdomen Adaptive Physical Education Teacher Required: No Accompanied by: Self / Same As Patient Allergies bee pollen (bee stings) Allergy (Verified 04/23/25 09:32) Anaphylaxis codeine Allergy (Verified 04/23/25 09:32) Rash diclofenac Allergy (Verified 04/23/25 09:32) Hypertension oxycodone (From Percocet) Allergy (Verified 04/23/25 09:32) Hallucinations HPI HPI post op: Details: Doing well. Only concern is some radiation of discomfort on the left flank when he touches the epigastric incision site. Otherwise is not having any issues. Appetite and bowel function at baseline. Wants to return to activity. Has been able to do light gentle activity as he feels a little bit deconditioned. Wants to slowly advance. [facility] Medical History BPH (benign prostatic hyperplasia) Class 1 obesity Nocturnal hypoxemia HTN (hypertension) Paroxysmal A-fib Surgical History History of cholecystectomy Hx of rotator cuff surgery Hx of bilateral hip replacements S/P excision of lipoma History of total replacement of right shoulder joint Social History Household Members: Spouse Housing: House Do you presently have visiting nurse or other home services: No Patient Tobacco Use Status: Former Tobacco user service: No Physical Exam Vital Signs: BMI result Body Mass Index 33.9 Const General: comfortable and no acute distress Orientation/consciousness: patient oriented x3 Resp Effort & Inspection: normal respiratory effort and able to speak in complete sentences GI Other: Incision sites: Well healed, no erythema, no drainage, nontender. No fluid collection.. Epigastric port site: No surrounding erythema, no fluid collection, no retained staple. Some tenderness in the left flank when palpating this site Inspection: No distended Palpation (GI): Soft to palpation and nontender Neuro General: patient oriented x3 Assessment & Plan Assessment & Plan (1) History of cholecystectomy: Comment: Laparoscopic converted to open cholecystectomy Dr. Marquez, 03/27/2025 Code(s): Z90.49 - Acquired absence of other specified parts of digestive tract Category: Surgical Plan 79-year-old male s/p laparoscopic converted to open cholecystectomy on 04/13/2025 Dr. Marquez returning office for routine follow up. Overall patient doing very well, not experiencing any pain. Only concern is some left flank discomfort when he touches the epigastric port site. His appetite and bowel function are at baseline. Continues to follow high-fiber diet, lots of fruits and vegetables. Denies nausea vomiting. On exam his abdomen is soft and benign. There was no evidence of infection from the epigastric port site. There was some discomfort in the left flank when this area is palpated. However there was no concern for infectious process. Reassured him this is likely related to some nerve irritation that occurred when gaining access to the abdomen with the trocars. This should resolve in a few months but informed him that this may take some more time to returned to normal. We will continue with activity restrictions no heavy lifting greater than 15 20 lb for 1 more week. He is okay to resume gentle activity this week to prepare himself for returning to activity next week. Again I advised him to start slow and slowly work back as he may be deconditioned from this long period of decreased activity. He is agreeable this. He can follow up as needed with any concerns in the future. Coding Level of Care Code Global (42000) Diagnoses History of cholecystectomy Z90.49
[2025-04-23 09:32] VITALS: BMI 33.9
== END 2025-04-23 09:38 | disposition home or self-care (01) ==
LOC: HO.HGS 09:22
PROVIDERS: PCP Internal Medicine
DX: Z90.49 Acquired absence of other specified parts of digestive tract (principal)
CPT/HCPCS: 99024

== ENCOUNTER → 2025-04-23 09:22 | Outpatient (BNVA) | payer MEDICARE, SELFPAY | PROVIDERS: PCP Internal Medicine | DX: Z48.815 Encounter for surgical aftercare following surgery on the digestive system (principal); Z90.49 Acquired absence of other specified parts of digestive tract | CPT/HCPCS: 99212 ==